=== PATIENT | female | born 1945 | race Caucasian/White ===

== ENCOUNTER 2017-10-17 16:08 | Emergency (ER) | payer BC ==
[~2017-10-17] VITALS: Ht 162.6 cm; Wt 60.4 kg
[~2017-10-17 16:08] MED LIST: ASPI81TA28 PO; CALC600T48 PO; CARB200T2 PO; CRAN1TAB4 PO; CRS/10 PO; CYAN10005 PO; LEVO50TA PO; METO25TA56 PO; MULTTAB58 PO; OMEG10002 PO; OXYC-57 PO; TRAM-10 PO
[2017-10-17 16:14] VITALS: TEMP 37; Ht 162.6 cm; Wt 60.4 kg
[2017-10-17] MEDS ORDERED: ACETAMINOPHEN 325 MG TAB PO STA (16:27)
[2017-10-17] MEDS ORDERED: CYCLOBENZAPRINE HCL 5 MG TAB PO STA (16:27)
--- NOTE | 2017-10-17 16:27 | EMERGENCY ROOM VISIT NOTE ---
History Report prepared by Anastasiia: Vlad Irvin Under the Supervision of: Dr. Lee Huddleston M.D. First contact with patient: 16:17 Chief Complaint: HEADACHE Stated Complaint: PAIN IN TOP OF HEAD AND BACK OF NECK History of Present Illness The patient is a 72 year old white female with a past medical history of left temporal headaches, HLD, hypothyroidism, mood disorder, trigeminal neuralgia, arthritis who presents to the ED with a cc of a worsening headache beginning a month ago. Positive generalized weakness, fatigue, lightheadedness. Negative urinary symptoms, recent falls, hits to the head. She states that 5 days ago, the pain on the top of her head has started to become more frequent, and gets worse at night. She adds that the pain sometimes goes down the left side of the back of her head. The patient notes that she has arthritis and was told by her doctor that she has some "chips" in her neck. She states that she was recently diagnosed with trigeminal neuralgia, and is taking Epitol for that. She notes no recent medication changes. Source of History: patient Onset: A month ago Position: head Quality: other (pain top of head and down left side of back of head) Timing: worsening Modifying Factors (Worsening): other (night time) Associated Symptoms: + fatigue, + weakness, No urinary symptoms Note: Positive intermittent lightheadedness. Negative recent falls. Review of Systems See HPI for pertinent positives and negatives. A total of ten systems were reviewed and were otherwise negative. Past Medical & Surgical Medical Problems: (1) Degenerative disc disease, cervical (2) Hyperlipidemia (3) Hypothyroidism (4) Intractable headache (5) Kidney stones (6) Trigeminal neuralgia Surgical Problems: (1) H/o vaginal repair (2) History of hysterectomy (3) Status post tubal ligation Family History Diabetes mellitus MOTHER SISTER FH: CHF (congestive heart failure) FATHER Social History Smoking Status: Never Smoker Alcohol Use: none Drug Use: none Marital Status: Housing Status: lives with significant other Occupation Status: retired Current/Historical Medications Scheduled Aspirin (Aspirin Ec), 81 MG PO QAM Calcium Carbonate (Calcium Carbonate), 600 MG PO QAM Carbamazepine (Epitol), 300 MG PO BID Cranberry (Vaccinium Macrocarp (Cranberry), 400 MG PO QAM Cyanocobalamin (Vitamin B-12), 1,000 MCG PO QAM Levothyroxine Sodium (Synthroid), 50 MCG PO QAM Metoprolol Tartrate (Lopressor) (Lopressor), 25 MG PO BID Multiple Vitamin (Multivitamin), 1 TAB PO QAM [place]-3 Fatty Acids (Fish Oil), 1,000 MG PO QAM Rosuvastatin Calcium (Crestor), 10 MG PO DAILYBL Scheduled PRN Oxycodone/Acetaminophen 5MG/325MG (Percocet 5MG/325MG), 1 TABLET PO Q4H PRN for Pain Tramadol (Ultram), 50-100 MG PO Q6H PRN for Pain Allergies Coded Allergies: Pseudoephedrine (Verified Allergy, Intermediate, heart beats, funny feeling, 10/17/17) Physical Exam Vital Signs Date Time Temp Pulse Resp B/P (MAP) Pulse Ox O2 Delivery O2 Flow Rate FiO2 10/17/17 17:30 72 18 147/77 98 Room Air 10/17/17 16:14 37.0 84 20 161/84 97 Room Air Physical Exam GENERAL: Awake, alert, well-appearing, NAD HENT: Normocephalic, atraumatic. EYES: Normal conjunctiva. Sclera non-icteric. NECK: Supple. No nuchal rigidity. FROM. RESPIRATORY: CTAB, no rhonchi, wheezing, crackles CARDIAC: RRR, no MRG ABDOMEN: Soft, NTND, BS+ MSK: No chest wall TTP, no LE edema NEURO: CN 2-12 intact, 5/5 upper and lower extremity strength, no dysmetria, no drift, good finger to nose, no sensory deficits. SKIN: No rash or jaundice noted. Medical Decision & Procedures ER Provider Diagnostic Interpretation: CT: Radiology results as stated below per my review and radiologist interpretation HEAD CT NONCONTRAST CT DOSE: 537.48 mGy.cm HISTORY: Headache. Evaluate for hemorrhage or pathology TECHNIQUE: Multiaxial CT images of the head were performed without the use of intravenous contrast. Automated exposure control was utilized for this study. A dose lowering technique was utilized adhering to the principles of ALARA. Comparison: None. Findings: The paranasal sinuses and mastoid air cells are clear. The calvarium and skull base are intact. There is no mass, hematoma, midline shift, acute infarct. White matter hypodensity is nonspecific but suggestive of microvascular ischemic change. The ventricles and sulci demonstrate mild age-related involutional changes. Impression: No acute intracranial abnormality. Electronically signed by: Yogesh Johnson M.D. 10/17/2017 5:23 PM Dictated Date/Time: 10/17/2017 5:18 PM Laboratory Results 10/17/17 16:40 Red Blood Count 3.93, Mean Corpuscular Volume 92.1, Mean Corpuscular Hemoglobin 29.8, Mean Corpuscular Hemoglobin Concent 32.3, Mean Platelet Volume 10.1, Neutrophils (%) (Auto) 53.9, Lymphocytes (%) (Auto) 28.3, Monocytes (%) (Auto) 15.7, Eosinophils (%) (Auto) 1.5, Basophils (%) (Auto) 0.2, Neutrophils # (Auto ) 2.95, Lymphocytes # (Auto) 1.55, Monocytes # (Auto) 0.86, Eosinophils # (Auto ) 0.08, Basophils # (Auto) 0.01 10/17/17 16:40 Test 10/17/17 16:40 White Blood Count 5.47 K/uL (4.8-10.8) Red Blood Count 3.93 M/uL (4.2-5.4) Hemoglobin 11.7 g/dL (12.0-16.0) Hematocrit 36.2 % (37-47) Mean Corpuscular Volume 92.1 fL (80-100) Mean Corpuscular Hemoglobin 29.8 pg (25-34) Mean Corpuscular Hemoglobin Concent 32.3 g/dl (32-36) Platelet Count 161 K/uL (130-400) Mean Platelet Volume 10.1 fL (7.4-10.4) Neutrophils (%) (Auto) 53.9 % Lymphocytes (%) (Auto) 28.3 % Monocytes (%) (Auto) 15.7 % Eosinophils (%) (Auto) 1.5 % Basophils (%) (Auto) 0.2 % Neutrophils # (Auto) 2.95 K/uL (1.4-6.5) Lymphocytes # (Auto) 1.55 K/uL (1.2-3.4) Monocytes # (Auto) 0.86 K/uL (0.11-0.59) Eosinophils # (Auto) 0.08 K/uL (0-0.5) Basophils # (Auto) 0.01 K/uL (0-0.2) RDW Standard Deviation 46.1 fL (36.4-46.3) RDW Coefficient of Variation 13.8 % (11.5-14.5) Immature Granulocyte % (Auto) 0.4 % Immature Granulocyte # (Auto) 0.02 K/uL (0.00-0.02) Prothrombin Time 10.2 SECONDS (9.0-12.0) Prothromb Time International Ratio 1.0 (0.9-1.1) Activated Partial Thromboplast Time 23.7 SECONDS (21.0-31.0) Partial Thromboplastin Ratio 0.9 Anion Gap 5.0 mmol/L (3-11) Est Creatinine Clear Calc Drug Dose 70.9 ml/min Estimated GFR () 104.4 Estimated GFR (Non- 90.1 BUN/Creatinine Ratio 23.2 (10-20) Calcium Level 8.7 mg/dl (8.5-10.1) Magnesium Level 2.3 mg/dl (1.8-2.4) Laboratory results reviewed by me Medications Administered Medications (Trade) Dose Ordered Sig/Jeff Route Start Time Stop Time Status Last Admin Dose Admin Acetaminophen (Tylenol Tab) 650 mg NOW STAT PO 10/17/17 16:27 10/17/17 16:29 DC 10/17/17 16:46 650 MG Cyclobenzaprine HCl (Flexeril Tab) 5 mg ONE STAT PO 10/17/17 16:27 10/17/17 16:29 DC 10/17/17 16:46 5 MG ED Course 1620: The patient was evaluated in room C1B. A complete history and physical exam was performed. 1733: I reevaluated the patient and she is resting. Discussed results and discharge instructions: she verbalized understanding and agreement. The patient is ready for discharge. Medical Decision The patient is a 72 year old white female with a past medical history of left temporal headaches, HLD, hypothyroidism, mood disorder, trigeminal neuralgia, arthritis who presents to the ED with a cc of a worsening headache beginning a month ago. Positive generalized weakness, fatigue, lightheadedness. Negative urinary symptoms, recent falls, hits to the head. Differential diagnosis: Etiologies such as migraine headache, meningitis, sinusitis, CO exposure, ICH, SAH, infection, tumor, headache, sinus thrombosis, arterial dissection, as well as others were entertained. Patient was seen and evaluated at the bedside. Patient was complaining some type of head pain. Patient does have a history of trigeminal neuralgia as well as some degenerative disc disease in her cervical spine. The patient has a nonfocal neurologic exam. No signs of meningismus. Patient is otherwise very well-appearing. The patient is preoccupied and concerned about possible malignancy, cancer, or mass in the brain. Patient is not taking blood thinning medications. Patient denies any numbness, tingling, or focal weakness. Patient did have blood work completed along with CT of the brain. Patient's blood work unremarkable. CT of the brain negative. Do not believe the patient requires any other advanced imaging given that she has a normal neurologic exam. This may be radicular type pain related to her cervical degenerative disease. May also be related to her history of neuralgia. Patient was told of all findings. Patient was feeling improved. Patient was given strict follow-up , discharge, and return precautions. All questions were answered. Patient was deemed suitable for outpatient follow-up at this time. Patient agreed with the plan of care and was safely discharged home. Medication Reconcilliation Current Medication List: was personally reviewed by me Blood Pressure Screening Patient's blood pressure: Elevated blood pressure Blood pressure disposition: Referred to PCP Impression Primary Impression: Headache Scribe Attestation The scribe's documentation has been prepared under my direction and personally reviewed by me in its entirety. I confirm that the note above accurately reflects all work, treatment, procedures, and medical decision making performed by me. Departure Information Dispostion Home / Self-Care Referrals Taqueria Abraham PA-C (PCP) Patient Instructions Headache Pain, My [facility] Additional Instructions Please return to the emergency department if you have worsening or recurrent symptoms not amenable to at-home treatment. Please call for a follow-up appointment with her primary care physician. Please take your medications as prescribed. If you have other concerns and/or complaints please feel free to also call your primary care physician's office or return the ED for further evaluation, management, and treatment. You received narcotic or benzodiazepene medication while in the emergency room today. This is an addictive medication that may cause drowziness as well as constipation. Do not drive, operate heavy machinery, or drink alcohol under the influence of this medication. You may take tylenol 650 mg every 6 hours as needed for pain. Take your medications as prescribed. You have been examined and treated today on an emergency basis only. This is not a substitute for, or an effort to provide, complete comprehensive medical care. It is impossible to recognize and treat all injuries or illnesses in a single emergency department visit. It is therefore important that you follow up closely with [facility], your PCP, and/or your specialist(s). Call as soon as possible for an appointment. Thank you for your time and consideration. I look forward to speaking with you again soon. Please don't hesitate to call us if you have any questions. Problem Qualifiers Primary Impression: Headache Headache type: unspecified Headache chronicity pattern: acute headache Intractability: not intractable Qualified Codes: R51 - Headache
[2017-10-17 16:53] LABS: BASO % 0.2 %; BASO ABS # 0.01 K/uL (0-0.2); EOS % 1.5 %; EOS ABS # 0.08 K/uL (0-0.5); HEMATOCRIT 36.2 % (37-47); HEMOGLOBIN 11.7 g/dL (12.0-16.0); IG# 0.02 K/uL (0.00-0.02); LYMPH % 28.3 %; LYMPH ABS # 1.55 K/uL (1.2-3.4); MEAN CELL VOLUME 92.1 fL (80-100); MEAN CORPUSCULAR HEMOGLOBIN 29.8 pg (25-34); MEAN CORPUSCULAR HGB CONC 32.3 g/dl (32-36); MEAN PLATELET VOLUME 10.1 fL (7.4-10.4); MONO % 15.7 %; MONO ABS # 0.86 K/uL (0.11-0.59); NEUT % 53.9 %; NEUT ABS # 2.95 K/uL (1.4-6.5); PLATELET COUNT 161 K/uL (130-400); RED CELL DISTRIBUTION WIDTH CV 13.8 % (11.5-14.5); RED CELL DISTRIBUTION WIDTH SD 46.1 fL (36.4-46.3); WHITE BLOOD COUNT 5.47 K/uL (4.8-10.8)
[2017-10-17 17:03] LABS: PTT PATIENT 23.7 SECONDS (21.0-31.0)
[2017-10-17 17:11] LABS: CALCIUM 8.7 mg/dl (8.5-10.1); CREATININE 0.62 mg/dl (0.60-1.20); POTASSIUM 3.8 mmol/L (3.5-5.1)
--- NOTE | 2017-10-17 17:25 | DIAGNOSTIC IMAGING REPORT ---
HEAD CT NONCONTRAST CT DOSE: 537.48 mGy.cm HISTORY: Headache. Evaluate for hemorrhage or pathology TECHNIQUE: Multiaxial CT images of the head were performed without the use of intravenous contrast. Automated exposure control was utilized for this study. A dose lowering technique was utilized adhering to the principles of ALARA. Comparison: None. Findings: The paranasal sinuses and mastoid air cells are clear. The calvarium and skull base are intact. There is no mass, hematoma, midline shift, acute infarct. White matter hypodensity is nonspecific but suggestive of microvascular ischemic change. The ventricles and sulci demonstrate mild age-related involutional changes. Impression: No acute intracranial abnormality. Electronically signed by: Yogesh Johnson M.D. 10/17/2017 5:23 PM Dictated Date/Time: 10/17/2017 5:18 PM
[2017-10-17 17:30] VITALS: BP 147/77; PULSE 72; O2SAT 98
== END 2017-10-17 18:00 | disposition home or self-care (01) ==
LOC: C.EDB 16:09 → C.EDC 18:00
DX: R51 Headache (principal); G50.0 Trigeminal neuralgia; E78.5 Hyperlipidemia, unspecified; E03.9 Hypothyroidism, unspecified; Z79.82 Long term (current) use of aspirin; Z88.8 Allergy status to other drugs, medicaments and biological substances; Z83.3 Family history of diabetes mellitus; Z82.49 Family history of ischemic heart disease and other diseases of the circulatory system

== ENCOUNTER 2023-03-05 19:18 | Inpatient (IN) ==
[2023-03-05] MEDS ORDERED: SODIUM CHLORIDE 0.9% 1000ML 1,000 ML IV ONE (20:15)
[2023-03-05] MEDS ORDERED: ONDANSETRON INJ 2 MG/ML 2 ML VIAL IV STA (20:15)
[2023-03-05 20:19] LABS: Hematocrit (blood only) 41.8 % (37.0-47.0); Hemoglobin 13.8 g/dl (12.0-16.0); Mean Corpuscular Hemoglobin 32.8 pg (25.0-34.0); Mean Corpuscular Volume 99.3 fL (80.0-100.0); Mean Platelet Volume 11.4 fL (9.4-12.4); Platelet Count 128 K/uL (130-400); RDW Coefficient of Variation 12.7 % (11.5-14.5); RDW Standard Deviation 46.3 fL (36.4-46.3); Red Blood Count 4.21 M/uL (4.20-5.40); White Blood Count 14.07 K/ul (4.8-10.8)
[2023-03-05] MEDS ORDERED: MoRPHine SULFATE 2 MG/ML CARP IV STA (20:27)
[2023-03-05] MEDS ORDERED: ACETAMINOPHEN 1,000 MG/100 ML VIAL IV STA (20:27)
[2023-03-05 20:28] LABS: Albumin Globulin Ratio 1.6 (0.9-2); Albumin Level 4.5 gm/dl (3.4-5.0); Bilirubin,Total 0.4 mg/dl (0.2-1.0); Creatinine Clr Calc Pharmacy 49.4 ml/min; Globulin 2.9 gm/dl (2.5-4.0); Potassium 3.4 mmol/L (3.5-5.1); Total Protein 7.4 gm/dl (6.0-8.3)
--- NOTE | 2023-03-05 20:32 | Emergency Department Note ---
Impression & Plan Rectal bleeding, Colitis, Leukocytosis, Elevated troponin ED Provider Note NAME: VAMSHI JONES AGE: 78 SEX: F : 1945 ARRIVES VIA: Walk-In INFORMANT: [Patient][family] ED PROVIDER(S): [Parmjit Ayala MD] CHIEF COMPLAINT: Abdominal pain, rectal bleeding HISTORY OF PRESENT ILLNESS: The patient is a 78-year-old female who states that yesterday, she began having diarrhea. Initially, the diarrhea was just loose and watery. She had some crampy abdominal pain. She states that about 22 hours ago, the diarrhea became eric blood. She has gone multiple times throughout the day today and every time, it has been blood. She still has pain in the left lower quadrant. There has been no fever, she has noticed some chills though. She has not had vomiting but has felt nauseated. No urinary complaints. Patient is not on blood thinning agents. She did have an upper GI bleed before, she required a blood transfusion about 4 years ago for this bleed. She was told that it was from an ulcer. She is currently on omeprazole. PMHx/PSHx: See Below SOCIAL HISTORY: See Below. PHYSICAL EXAM: GENERAL: Patient is in no acute distress. HEENT: No acute trauma, normocephalic atraumatic, mucous membranes moist, no nasal congestion. NECK: No stridor, no adenopathy, no meningismus, trachea is midline. LUNGS: Clear to auscultation bilaterally, no wheeze, no rhonchi, breath sounds equal. HEART: Without murmurs gallops or rubs, regular rate and rhythm. ABDOMEN: Soft, moderately tender in the left lower quadrant, no abdominal distention. EXTREMITIES: No cyanosis or edema, full range of motion of all the joints without pain or difficulty, no signs for acute trauma. NEUROLOGIC: Oriented x 3, no acute motor or sensory deficits, no focal weakness. SKIN: No rash, no jaundice, no diaphoresis. Rectal: This exam was performed with a female nurse wild life photographer. There was no external source for bleeding. Digital exam reveals bright red blood per rectum. DIFFERENTIAL DIAGNOSIS: Diverticular bleeding, diverticulitis, colitis, hemorrhoid, anemia, dehydration, electrolyte imbalance, coagulopathy, among others. EMERGENCY DEPARTMENT COURSE/PROCEDURES: Prior/Outside records reviewed: None. ECG per my interpretation: Indication was GI bleeding. The ECG shows a normal sinus rhythm with a rate of 87. There is a left bundle branch block. LVH is present. There is a potential old anterior infarct. There is no concerning ST elevation. No PVCs. The QTc is 481. Compared to an ECG from 05 August 2021, I see no significant change. Continuous Cardiac Monitoring per my interpretation: An order was placed for continuous cardiac monitoring. The monitor shows a rate of 93 with normal sinus rhythm. MEDICAL DECISION MAKING: There is a mild leukocytosis, this could be consistent with infection or just the stress of her current situation. There was a normal hemoglobin. The platelet count was slightly low. No coagulopathy. Potassium is slightly low but not in need of emergent correction. No renal failure. No concerning liver enzyme elevation. ECG showed a normal sinus rhythm with a left bundle branch block and LVH. No obvious acute ischemia. Cardiac troponin was slightly elevated, this elevation could be secondary to cardiac injury or more likely, mismatch from her current presentation. COVID test returned negative. Abdominal and pelvis CT shows colitis, no diverticulitis, no acute surgical process by CT imaging. On exam, the patient was nontoxic. She was tender in the left lower quadrant. She did have bright red blood per rectum on my exam. Patient received IV Tylenol for pain, he was given IV morphine and IV Zofran, she received IV saline 1 L. Given the persistent rectal bleeding, given her findings on imaging and laboratory testing, I do think a hospital stay is warranted. I spoke with the patient and case management, the on-call hospitalist was consulted. Of note, stool cultures and stool C. difficile testing is currently pending as the patient has yet to provide a sample. DISPOSITION: Patient's presentation and findings warrant a hospital stay. Past Med/Surg History Medical History COVID-19 Degenerative disc disease, cervical Hyperlipidemia Hypothyroidism Kidney stones Mood disorder Trigeminal neuralgia Trigeminal neuralgia Surgical History History of cholecystectomy History of hysterectomy Status post tubal ligation Family History Other Family history of blood clots Social History Smoking Status: Never smoker Preferred Language: [place] marital status: Current Living Situation: Spouse Feels Safe at Home: Yes Allergies Allergies Allergy/AdvReac Type Severity Reaction Status Date / Time pseudoephedrine Allergy Intermediate heart Verified 03/05/23 20:08 beats, funny feeling Home Meds Home Medications Medication Instructions Recorded Confirmed calcium carbonate 600 mg calcium 600 mg PO QAM PRN Heartburn ##0 06/07/16 03/05/23 (1,500 mg) tablet cranberry 400 mg capsule 400 mg PO QAM ##0 06/07/16 03/05/23 multivitamin 1 tab PO QAM #0 tabs 06/07/16 03/05/23 aspirin 81 mg tablet,delayed 81 mg PO QAM ##0 07/29/16 03/05/23 release metoprolol tartrate 25 mg tablet 0 mg PO BID #0 tabs 07/29/16 03/05/23 aspirin-caffeine 500 mg-32.5 mg 1 tab PO DIRECTED PRN Pain 02/18/19 03/05/23 tablet (Dyan Back and Body) ferrous sulfate 325 mg (65 mg 325 mg PO QAM 02/18/19 03/05/23 iron) tablet (iron) lisinopril 5 mg tablet 5 mg PO QAM 04/28/19 03/05/23 rosuvastatin 20 mg tablet 20 mg PO QDL 04/28/19 03/05/23 levothyroxine 75 mcg tablet 75 mcg PO QAM 05/22/21 03/05/23 (Euthyrox) cholecalciferol (vitamin D3) 25 25 mcg PO QAM 07/21/21 03/05/23 mcg (1,000 unit) tablet (Vitamin D3) cyanocobalamin (vitamin B-12) 100 100 mcg PO QAM 07/21/21 03/05/23 mcg tablet (Vitamin B-12) escitalopram oxalate 10 mg tablet 10 mg PO QAM 07/25/21 03/05/23 carbamazepine 200 mg tablet 200 mg PO TID 07/27/21 03/05/23 omeprazole 20 mg capsule,delayed 20 mg PO QAM 08/05/21 03/05/23 release lorazepam 0.5 mg tablet 0.5 mg PO HS PRN Anxiety 03/05/23 03/05/23 Previous Rx's Medication Instructions Recorded naproxen 500 mg tablet 500 mg PO BID PRN pain #14 tabs 07/27/21 Results & Data (ED) Vital Signs Vital Signs - 24 hr 03/05/23 19:25 03/05/23 20:22 03/05/23 20:22 Temperature 36.9 C Temperature Source Temporal Artery Scan Pulse Rate 93 H 85 85 Pulse Rhythm Regular Pulse Strength Normal Respiratory Rate 19 17 Respiratory Effort / Characteristics Non-Labored Spontaneous Respiratory Depth Normal Respiratory Pattern Regular Blood Pressure 101/59 L Blood Pressure Mean 73 Blood Pressure Position Sitting Pulse Oximetry 94 Oxygen Delivery Method Room Air Sepsis Recent Fever Within 48 Hours No Sepsis New/Unexplained Change in Mental Status N/A Sepsis Action Taken by Nursing No Action Required 03/05/23 20:26 03/05/23 20:26 03/05/23 20:30 Temperature Temperature Source Pulse Rate 81 Pulse Rhythm Pulse Strength Respiratory Rate 15 Respiratory Effort / Characteristics Respiratory Depth Respiratory Pattern Blood Pressure 139/59 L 104/55 L Blood Pressure Mean 85 71 Blood Pressure Position Pulse Oximetry Oxygen Delivery Method Sepsis Recent Fever Within 48 Hours Sepsis New/Unexplained Change in Mental Status Sepsis Action Taken by Nursing 03/05/23 20:30 03/05/23 20:40 03/05/23 20:50 Temperature Temperature Source Pulse Rate 81 77 74 Pulse Rhythm Pulse Strength Respiratory Rate 19 17 16 Respiratory Effort / Characteristics Respiratory Depth Respiratory Pattern Blood Pressure Blood Pressure Mean Blood Pressure Position Pulse Oximetry Oxygen Delivery Method Sepsis Recent Fever Within 48 Hours Sepsis New/Unexplained Change in Mental Status Sepsis Action Taken by Nursing 03/05/23 21:00 03/05/23 21:10 03/05/23 21:25 Temperature Temperature Source Pulse Rate 68 66 77 Pulse Rhythm Pulse Strength Respiratory Rate 15 15 17 Respiratory Effort / Characteristics Respiratory Depth Respiratory Pattern Blood Pressure Blood Pressure Mean Blood Pressure Position Pulse Oximetry Oxygen Delivery Method Sepsis Recent Fever Within 48 Hours Sepsis New/Unexplained Change in Mental Status Sepsis Action Taken by Nursing 03/05/23 21:30 03/05/23 21:30 03/05/23 21:40 Temperature Temperature Source Pulse Rate 73 72 Pulse Rhythm Pulse Strength Respiratory Rate 22 18 Respiratory Effort / Characteristics Respiratory Depth Respiratory Pattern Blood Pressure 131/47 L Blood Pressure Mean 75 Blood Pressure Position Pulse Oximetry Oxygen Delivery Method Sepsis Recent Fever Within 48 Hours Sepsis New/Unexplained Change in Mental Status Sepsis Action Taken by Nursing 03/05/23 21:50 03/05/23 22:00 03/05/23 22:00 Temperature Temperature Source Pulse Rate 71 69 Pulse Rhythm Pulse Strength Respiratory Rate 14 18 Respiratory Effort / Characteristics Respiratory Depth Respiratory Pattern Blood Pressure 110/49 L Blood Pressure Mean 69 Blood Pressure Position Pulse Oximetry Oxygen Delivery Method Sepsis Recent Fever Within 48 Hours Sepsis New/Unexplained Change in Mental Status Sepsis Action Taken by Nursing 03/05/23 22:10 03/05/23 22:20 Temperature Temperature Source Pulse Rate 69 70 Pulse Rhythm Pulse Strength Respiratory Rate 16 19 Respiratory Effort / Characteristics Respiratory Depth Respiratory Pattern Blood Pressure Blood Pressure Mean Blood Pressure Position Pulse Oximetry Oxygen Delivery Method Sepsis Recent Fever Within 48 Hours Sepsis New/Unexplained Change in Mental Status Sepsis Action Taken by Correction Medications Current Medication List: was personally reviewed by me Laboratory Data Attestation: I reviewed the patient's lab results. 03/05/23 19:47 03/05/23 19:47 Lab Results 03/05/23 03/05/23 03/05/23 Range/Units 19:29 19:47 19:47 WBC 14.07 H (4.8-10.8) K/ul RBC 4.21 (4.20-5.40) M/uL Hgb 13.8 (12.0-16.0) g/dl Hct 41.8 (37.0-47.0) % MCV 99.3 (80.0-100.0) fL MCH 32.8 (25.0-34.0) pg MCHC 33.0 (32.0-36.0) g/dL RDW Std Deviation 46.3 (36.4-46.3) fL RDW Coeff of Danyelle 12.7 (11.5-14.5) % Plt Count 128 L (130-400) K/uL MPV 11.4 (9.4-12.4) fL PT 10.7 (9.0-12.0) Seconds INR 1.0 (0.9-1.1) APTT 26.5 (21.0-31.0) Seconds PTT Ratio 0.9 Sodium (136-145) mmol/L Potassium (3.5-5.1) mmol/L Chloride (98-107) mmol/L Carbon Dioxide (21-32) mmol/L Anion Gap (3-11) BUN (6-23) mg/dl Creatinine (0.6-1.2) mg/dl Est Cr Clr Drug Dosing ml/min Est GFR ( Amer) ml/min Est GFR (Non-Af Amer) ml/min BUN/Creatinine Ratio (10-20) Glucose (70-99(Fasting)) mg/dl Calcium (8.6-10.3) mg/dl Magnesium (1.7-2.4) mg/dl Total Bilirubin (0.2-1.0) mg/dl AST (13-39) U/L ALT (7-52) U/L Alkaline Phosphatase (34-104) U/L Troponin I High Sens (0-14) pg/ml Total Protein (6.0-8.3) gm/dl Albumin (3.4-5.0) gm/dl Globulin (2.5-4.0) gm/dl Albumin/Globulin Ratio (0.9-2) SARS-CoV-2, RNA, NAAT (NEGATIVE) Blood Type O Positive Antibody Screen NEGATIVE 03/05/23 03/05/23 Range/Units 19:47 20:26 WBC (4.8-10.8) K/ul RBC (4.20-5.40) M/uL Hgb (12.0-16.0) g/dl Hct (37.0-47.0) % MCV (80.0-100.0) fL MCH (25.0-34.0) pg MCHC (32.0-36.0) g/dL RDW Std Deviation (36.4-46.3) fL RDW Coeff of Danyelle (11.5-14.5) % Plt Count (130-400) K/uL MPV (9.4-12.4) fL PT (9.0-12.0) Seconds INR (0.9-1.1) APTT (21.0-31.0) Seconds PTT Ratio Sodium 138 (136-145) mmol/L Potassium 3.4 L (3.5-5.1) mmol/L Chloride 101 (98-107) mmol/L Carbon Dioxide 29 (21-32) mmol/L Anion Gap 8 (3-11) BUN 17 (6-23) mg/dl Creatinine 0.75 (0.6-1.2) mg/dl Est Cr Clr Drug Dosing 49.4 ml/min Est GFR ( Amer) 88.5 ml/min Est GFR (Non-Af Amer) 76.3 ml/min BUN/Creatinine Ratio 22.7 H (10-20) Glucose 135 H (70-99(Fasting)) mg/dl Calcium 9.4 (8.6-10.3) mg/dl Magnesium 2.0 (1.7-2.4) mg/dl Total Bilirubin 0.4 (0.2-1.0) mg/dl AST 17 (13-39) U/L ALT 10 (7-52) U/L Alkaline Phosphatase 111 H (34-104) U/L Troponin I High Sens 19.4 H (0-14) pg/ml Total Protein 7.4 (6.0-8.3) gm/dl Albumin 4.5 (3.4-5.0) gm/dl Globulin 2.9 (2.5-4.0) gm/dl Albumin/Globulin Ratio 1.6 (0.9-2) SARS-CoV-2, RNA, NAAT NEGATIVE (NEGATIVE) Blood Type Antibody Screen Administered Medications Discontinued Medications Sodium Chloride (Nss 1000ml) 1,000 mls @ 999 mls/hr IV .Q1H1M ONE Stop: 03/05/23 21:15 Last Infusion: 03/05/23 21:37 Dose: 0 mls/hr Documented By: Admin: 03/05/23 20:31 Dose: 999 mls/hr Documented By: VERONIKA Acetaminophen (Ofirmev) 1,000 mg in 100 mls @ 400 mls/hr IV NOW STA Stop: 03/05/23 20:41 Last Infusion: 03/05/23 20:51 Dose: 0 mls/hr Documented By: Admin: 03/05/23 20:34 Dose: 400 mls/hr Documented By: VERONIKA Ioversol (Optiray 320 100ml) 94 ml IV ONCE ONE Stop: 03/05/23 21:29 Last Admin: 03/05/23 21:19 Dose: 94 ml Documented By: RYAN Morphine Sulfate (Morphine Sulfate 2 Mg/Ml Carp) 2 mg IV NOW STA Stop: 03/05/23 20:28 Last Admin: 03/05/23 20:34 Dose: 2 mg Documented By: VERONIKA Ondansetron HCl (Ondansetron Inj 2 Mg/Ml 2 Ml Vial) 4 mg IV NOW STA Stop: 03/05/23 20:16 Last Admin: 03/05/23 20:34 Dose: 4 mg Documented By: BCStefan Imaging Data Radiologist's Impression: Abdomen/Pelvis CT 03/05/23 20:15 Exam(s): CT ABDOMEN + PELVIS With Contrast IV Amt: 94 ml [id number] EXAM: CT Abdomen and Pelvis With Intravenous Contrast CLINICAL HISTORY: Reason for exam: rectal bleeding. TECHNIQUE: Axial computed tomography images of the abdomen and pelvis with intravenous contrast. CTDI is 19.4 mGy and DLP is 841.29 mGy-cm. Automated exposure control was utilized for the study. A dose lowering technique was utilized adhering to the principles of ALARA. CONTRAST: Patient received 94 ml [id number] of IV contrast COMPARISON: 07/21/21 FINDINGS: Lung bases: Unremarkable. No mass. No consolidation. Mediastinum: Large hiatal hernia. ABDOMEN: Liver: Unremarkable. No mass. Gallbladder and bile ducts: Unremarkable. No calcified stones. No ductal dilation. Pancreas: Unremarkable. No mass. No ductal dilation. Spleen: Unremarkable. No splenomegaly. Adrenals: Unremarkable. No mass. Kidneys and ureters: Symmetric renal enhancement. No hydronephrosis. Renal parapelvic cysts, simple in appearance; no further follow-up required. Stomach and bowel: Circumferential wall thickening and pericolic fat stranding of the left hemicolon. No bowel obstruction. PELVIS: Appendix: Normal appendix. Bladder: Unremarkable. Normal urinary bladder. Reproductive: Hysterectomy. ABDOMEN and PELVIS: Intraperitoneal space: Unremarkable. No free air or significant free fluid. Bones/joints: No acute fracture or dislocation. Soft tissues: Unremarkable. Vasculature: Atherosclerosis. No aortic aneurysm. Lymph nodes: Unremarkable. No enlarged lymph nodes. IMPRESSION: 1. Colitis of the left colon, infectious or inflammatory. 2. Large hiatal hernia, similar to prior. Electronically signed by: Felisa Manuel M.D. 03/05/23 22:20 PM Discharge Plan Visit Data Chief Complaint: Abdominal Pain Stated Complaint: ABDOMINAL PAIN, RECTAL BLEED ED Provider: Parmjit Ayala Discharge Problem: Rectal bleeding, Colitis, Leukocytosis, Elevated troponin Patient Disposition: Admitted As Inpatient Condition: Fair Forms Stand Alone Forms: AQS Prescriptions Prescriptions: No Action multivitamin Tablet 1 tab PO QAM Qty: 0 calcium carbonate 600 mg calcium (1,500 mg) Tablet 600 mg PO QAM PRN (Reason: Heartburn) Qty: 0 cranberry 400 mg Capsule 400 mg PO QAM Qty: 0 metoprolol tartrate 25 mg Tablet 0 mg PO BID Qty: 0 Rx Instructions: Pt unsure if she takes Succinate or Tartrate aspirin 81 mg Tablet,Delayed Release (Dr/Ec) 81 mg PO QAM Qty: 0 ferrous sulfate [iron] 325 mg (65 mg iron) Tablet 325 mg PO QAM Patient Comments: takes in the afternoon. Dyan Back and Body 500-32.5 mg Tablet 1 tab PO DIRECTED PRN (Reason: Pain) lisinopril 5 mg Tablet 5 mg PO QAM rosuvastatin 20 mg Tablet 20 mg PO QDL levothyroxine [Euthyrox] 75 mcg tablet 75 mcg PO QAM Rx Instructions: Levothyroxine 88mcg on EXT med list, however the pt states she takes 75mcg and the pill is not green, it's purple cyanocobalamin (vitamin B-12) [Vitamin B-12] 100 mcg Tablet 100 mcg PO QAM cholecalciferol (vitamin D3) [Vitamin D3] 25 mcg (1,000 unit) Tablet 25 mcg PO QAM carbamazepine 200 mg tablet 200 mg PO TID naproxen 500 mg tablet 500 mg PO BID PRN (Reason: pain) Qty: 14 0RF omeprazole 20 mg capsule,delayed release(DR/EC) 20 mg PO QAM escitalopram oxalate 10 mg tablet 10 mg PO QAM lorazepam 0.5 mg tablet 0.5 mg PO HS PRN (Reason: Anxiety) Referrals Referrals: Stef Palmer MD [Primary Care Provider] -
[2023-03-05 20:36] LABS: BUN Creatinine Ratio 22.7 (10-20); Calcium 9.4 mg/dl (8.6-10.3); Est GFR (African American) 88.5 ml/min; Est GFR (Non-African American) 76.3 ml/min
[2023-03-05 20:41] LABS: Partial Thromboplastin Ratio 0.9; Partial Thromboplastin Time 26.5 Seconds (21.0-31.0); Prothrombin Time 10.7 Seconds (9.0-12.0)
[2023-03-05 20:43] LABS: Troponin I High Sensitivity 19.4 pg/ml (0-14)
[2023-03-05] MEDS ORDERED: OPTIRAY 320 100ml IV ONE (21:28)
--- NOTE | 2023-03-05 22:21 | CT Scan Report ---
Exam(s): CT ABDOMEN + PELVIS With Contrast IV Amt: 94 ml [id number] EXAM: CT Abdomen and Pelvis With Intravenous Contrast CLINICAL HISTORY: Reason for exam: rectal bleeding. TECHNIQUE: Axial computed tomography images of the abdomen and pelvis with intravenous contrast. CTDI is 19.4 mGy and DLP is 841.29 mGy-cm. Automated exposure control was utilized for the study. A dose lowering technique was utilized adhering to the principles of ALARA. CONTRAST: Patient received 94 ml [id number] of IV contrast COMPARISON: 07/21/21 FINDINGS: Lung bases: Unremarkable. No mass. No consolidation. Mediastinum: Large hiatal hernia. ABDOMEN: Liver: Unremarkable. No mass. Gallbladder and bile ducts: Unremarkable. No calcified stones. No ductal dilation. Pancreas: Unremarkable. No mass. No ductal dilation. Spleen: Unremarkable. No splenomegaly. Adrenals: Unremarkable. No mass. Kidneys and ureters: Symmetric renal enhancement. No hydronephrosis. Renal parapelvic cysts, simple in appearance; no further follow-up required. Stomach and bowel: Circumferential wall thickening and pericolic fat stranding of the left hemicolon. No bowel obstruction. PELVIS: Appendix: Normal appendix. Bladder: Unremarkable. Normal urinary bladder. Reproductive: Hysterectomy. ABDOMEN and PELVIS: Intraperitoneal space: Unremarkable. No free air or significant free fluid. Bones/joints: No acute fracture or dislocation. Soft tissues: Unremarkable. Vasculature: Atherosclerosis. No aortic aneurysm. Lymph nodes: Unremarkable. No enlarged lymph nodes. IMPRESSION: 1. Colitis of the left colon, infectious or inflammatory. 2. Large hiatal hernia, similar to prior. Electronically signed by: Felisa Manuel M.D. 03/05/23 22:20 PM
[2023-03-05] MEDS ORDERED: POTASSIUM CHLORIDE PWD 20 MEQ PACK PO STA (22:31)
[2023-03-05] MEDS ORDERED: NSS + 20MEQ KCL 20 MEQ/1,000 ML BAG IV ONE (22:33)
[2023-03-05 23:31] LABS: Hematocrit (blood only) 35.3 % (37.0-47.0); Hemoglobin 11.5 g/dl (12.0-16.0)
--- NOTE | 2023-03-05 23:43 | History & Physical Report ---
Date of Service March 05, 2023 Assessment & Plan (1) Colitis: Plan: Hemorrhagic colitis Rule out infectious causes chronic systolic heart failure secondary to nonischemic cardiomyopathy (EF 44%, TTE 2016), patient on the dry side chronic LBBB hypertension, stable hyperlipidemia, statin Rx Prediabetes, hemoglobin A1c of 5.7 last year hypothyroidism, euthyroid as of recent outpatient TSH history gastric ulcer history diverticulosis trigeminal neuralgia status post surgery on Tegretol anxiety/mood disorder, at baseline hyperglycemia rule out DM Medical telemetry Clear liquid diet stool work-up GI consult stool work-up negative and with progressive LGIB Re: Hemorrhagic colitis Follow H&H, transfuse PRBC if hemoglobin less than 7 and or from symptomatic anemia DVT prophylaxis. SCDs Re: L GIB Full code Text document was generated using Via6 voice recognition software. It may contain grammatical or spelling errors. Kindly contact undersigned for clarification of any documentation item in question. History of Present Illness Chief Complaint: Bloody diarrhea Primary Care Provider: Stef Palmer MD History obtained from patient and records. Medical history significant for chronic systolic heart failure secondary to nonischemic cardiomyopathy (EF 44%, TTE 2016), chronic LBBB, hypertension, hyperlipidemia, hypothyroidism, history gastric ulcer, history diverticulosis, prediabetes, trigeminal neuralgia status post surgery, anxiety/mood disorder. Last confinement over 2015 for headache attributed to trigeminal neuralgia. Patient noted watery diarrhea symptoms yesterday with crampy abdominal pain. Diarrhea later noted to be bloody. No fever, some chills. Some nausea, no emesis. No recent out-of-town travel, new restaurants, antibiotic Rx or known sick contacts. Patient denies headache, chest pain, SOB. Patient consulted ER for evaluation. 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 Allergies Allergy/AdvReac Type Severity Reaction Status Date / Time pseudoephedrine Allergy Intermediate heart Verified 03/05/23 20:08 beats, funny feeling Home Medications Medication Instructions Recorded Confirmed Type calcium carbonate 600 mg calcium 600 mg PO QAM PRN Heartburn ##0 06/07/16 03/05/23 History (1,500 mg) tablet cranberry 400 mg capsule 400 mg PO QAM ##0 06/07/16 03/05/23 History multivitamin 1 tab PO QAM #0 tabs 06/07/16 03/05/23 History aspirin 81 mg tablet,delayed 81 mg PO QAM ##0 07/29/16 03/05/23 History release metoprolol tartrate 25 mg tablet 0 mg PO BID #0 tabs 07/29/16 03/05/23 History aspirin-caffeine 500 mg-32.5 mg 1 tab PO DIRECTED PRN Pain 02/18/19 03/05/23 History tablet (Dyan Back and Body) ferrous sulfate 325 mg (65 mg 325 mg PO QAM 02/18/19 03/05/23 History iron) tablet (iron) lisinopril 5 mg tablet 5 mg PO QAM 04/28/19 03/05/23 History rosuvastatin 20 mg tablet 20 mg PO QDL 04/28/19 03/05/23 History levothyroxine 75 mcg tablet 75 mcg PO QAM 05/22/21 03/05/23 History (Euthyrox) cholecalciferol (vitamin D3) 25 25 mcg PO QAM 07/21/21 03/05/23 History mcg (1,000 unit) tablet (Vitamin D3) cyanocobalamin (vitamin B-12) 100 100 mcg PO QAM 07/21/21 03/05/23 History mcg tablet (Vitamin B-12) escitalopram oxalate 10 mg tablet 10 mg PO QAM 07/25/21 03/05/23 History carbamazepine 200 mg tablet 200 mg PO TID 07/27/21 03/05/23 History naproxen 500 mg tablet 500 mg PO BID PRN pain #14 tabs 07/27/21 03/05/23 Rx omeprazole 20 mg capsule,delayed 20 mg PO QAM 08/05/21 03/05/23 History release lorazepam 0.5 mg tablet 0.5 mg PO HS PRN Anxiety 03/05/23 03/05/23 History Past Med/Surg History Medical History COVID-19 Degenerative disc disease, cervical Hyperlipidemia Hypothyroidism Kidney stones Mood disorder Trigeminal neuralgia Trigeminal neuralgia Surgical History History of cholecystectomy History of hysterectomy Status post tubal ligation Family History Other Family history of blood clots Social History Smoking Status: Never smoker Hx Alcohol Use: No Hx Substance Use: No Preferred Language: American Communication Ability: Effective Bookkeeping Teacher Required: No Beliefs That Will Affect Care: None marital status: Current Living Situation: Spouse Other Information That Helps Us Care for You: No Feels Safe at Home: Yes Safety Concerns: Feels Safe At This Time Assistive Devices: Glasses Review of Systems Review of Systems: As per HPI, all other systems reviewed and negative Physical Exam Physical Exam: GENERAL: Comfortable, pleasant, slightly hard of hearing, no respiratory distr ess SKIN: Normal color, warm HEENT: [place] palpebral conjunctivae, no ptosis, dry buccal mucosa NECK : Supple, no tenderness CHEST : CTA, no tenderness HEART : RRR, no obvious murmurs ABDOMEN: Some distention, left-sided abdominal tenderness EXTREMITIES : Minimal LE swelling, no LE tenderness, no other conspicuous deformities noted NEUROLOGIC : Coherent, no facial asymmetry, slightly hard of hearing, no other gross focality Results & Data Results & Data Vital Signs (Past 12 Hours) Vital Signs Temp Pulse Resp BP Pulse Ox O2 Del Method 03/05/23 23:00 69 21 126/62 03/05/23 22:30 68 18 114/53 L 03/05/23 22:20 70 19 03/05/23 22:10 69 16 03/05/23 22:00 69 18 03/05/23 22:00 110/49 L 03/05/23 21:50 71 14 03/05/23 21:40 72 18 03/05/23 21:30 73 22 03/05/23 21:30 131/47 L 03/05/23 21:25 77 17 03/05/23 21:10 66 15 03/05/23 21:00 68 15 03/05/23 20:50 74 16 03/05/23 20:40 77 17 03/05/23 20:30 81 19 03/05/23 20:30 104/55 L 03/05/23 20:26 139/59 L 07/16/23 20:26 81 15 03/05/23 20:22 85 17 03/05/23 20:22 85 03/05/23 19:25 36.9 C 93 H 19 101/59 L 94 Room Air Laboratory Results Laboratory Results WBC 14.07 K/ul (4.8-10.8) H 03/05/23 19:47 RBC 4.21 M/uL (4.20-5.40) 03/05/23 19:47 Hgb 11.5 g/dl (12.0-16.0) L 03/05/23 23:10 Hct 35.3 % (37.0-47.0) L 03/05/23 23:10 MCV 99.3 fL (80.0-100.0) 03/05/23 19:47 MCH 32.8 pg (25.0-34.0) 03/05/23 19:47 MCHC 33.0 g/dL (32.0-36.0) 03/05/23 19:47 RDW Std Deviation 46.3 fL (36.4-46.3) 03/05/23 19:47 RDW Coeff of Danyelle 12.7 % (11.5-14.5) 03/05/23 19:47 Plt Count 128 K/uL (130-400) L 03/05/23 19:47 MPV 11.4 fL (9.4-12.4) 03/05/23 19:47 PT 10.7 Seconds (9.0-12.0) 03/05/23 19:47 INR 1.0 (0.9-1.1) 03/05/23 19:47 APTT 26.5 Seconds (21.0-31.0) 03/05/23 19:47 PTT Ratio 0.9 03/05/23 19:47 Sodium 138 mmol/L (136-145) 03/05/23 19:47 Potassium 3.4 mmol/L (3.5-5.1) L 03/05/23 19:47 Chloride 101 mmol/L (98-107) 03/05/23 19:47 Carbon Dioxide 29 mmol/L (21-32) 03/05/23 19:47 Anion Gap 8 (3-11) 03/05/23 19:47 BUN 17 mg/dl (6-23) 03/05/23 19:47 Creatinine 0.75 mg/dl (0.6-1.2) 03/05/23 19:47 Est Cr Clr Drug Dosing 49.4 ml/min 03/05/23 19:47 Est GFR ( Amer) 88.5 ml/min 03/05/23 19:47 Est GFR (Non-Af Amer) 76.3 ml/min 03/05/23 19:47 BUN/Creatinine Ratio 22.7 (10-20) H 03/05/23 19:47 Glucose 135 mg/dl (70-99(Fasting)) H 03/05/23 19:47 Lactate 0.6 mmol/L (0.4-2.0) 03/05/23 22:51 Calcium 9.4 mg/dl (8.6-10.3) 03/05/23 19:47 Magnesium 2.0 mg/dl (1.7-2.4) 03/05/23 19:47 Total Bilirubin 0.4 mg/dl (0.2-1.0) 03/05/23 19:47 AST 17 U/L (13-39) 03/05/23 19:47 ALT 10 U/L (7-52) 03/05/23 19:47 Alkaline Phosphatase 111 U/L (34-104) H 03/05/23 19:47 Troponin I High Sens 19.0 pg/ml (0-14) H 03/05/23 22:51 Total Protein 7.4 gm/dl (6.0-8.3) 03/05/23 19:47 Albumin 4.5 gm/dl (3.4-5.0) 03/05/23 19:47 Globulin 2.9 gm/dl (2.5-4.0) 03/05/23 19:47 Albumin/Globulin Ratio 1.6 (0.9-2) 03/05/23 19:47 Carbamazepine 9.0 mcg/ml (4-12) 03/05/23 22:51 SARS-CoV-2, RNA, NAAT NEGATIVE (NEGATIVE) 03/05/23 20:26 Blood Type O Positive 03/05/23 19:29 Antibody Screen NEGATIVE 03/05/23 19:29 Impressions Abdomen/Pelvis CT 03/05/23 20:15 Exam(s): CT ABDOMEN + PELVIS With Contrast IV Amt: 94 ml [id number] EXAM: CT Abdomen and Pelvis With Intravenous Contrast CLINICAL HISTORY: Reason for exam: rectal bleeding. TECHNIQUE: Axial computed tomography images of the abdomen and pelvis with intravenous contrast. CTDI is 19.4 mGy and DLP is 841.29 mGy-cm. Automated exposure control was utilized for the study. A dose lowering technique was utilized adhering to the principles of ALARA. CONTRAST: Patient received 94 ml [id number] of IV contrast COMPARISON: 07/21/21 FINDINGS: Lung bases: Unremarkable. No mass. No consolidation. Mediastinum: Large hiatal hernia. ABDOMEN: Liver: Unremarkable. No mass. Gallbladder and bile ducts: Unremarkable. No calcified stones. No ductal dilation. Pancreas: Unremarkable. No mass. No ductal dilation. Spleen: Unremarkable. No splenomegaly. Adrenals: Unremarkable. No mass. Kidneys and ureters: Symmetric renal enhancement. No hydronephrosis. Renal parapelvic cysts, simple in appearance; no further follow-up required. Stomach and bowel: Circumferential wall thickening and pericolic fat stranding of the left hemicolon. No bowel obstruction. PELVIS: Appendix: Normal appendix. Bladder: Unremarkable. Normal urinary bladder. Reproductive: Hysterectomy. ABDOMEN and PELVIS: Intraperitoneal space: Unremarkable. No free air or significant free fluid. Bones/joints: No acute fracture or dislocation. Soft tissues: Unremarkable. Vasculature: Atherosclerosis. No aortic aneurysm. Lymph nodes: Unremarkable. No enlarged lymph nodes. IMPRESSION: 1. Colitis of the left colon, infectious or inflammatory. 2. Large hiatal hernia, similar to prior. Electronically signed by: Felisa Manuel M.D. 03/05/23 22:20 PM Diagnostic Findings EKG as per my interpretation : Rate 85, NSR, LAD, LAFB, LVH inferior infarct, no ischemia
[2023-03-05] MEDS ORDERED: ACETAMINOPHEN 325 MG TAB PO PRN (23:47)
[2023-03-05] MEDS ORDERED: oxyCODONE HCL IR 5 MG TAB (IMMEDIATE RELEASE) PO PRN (23:47)
[2023-03-05] MEDS ORDERED: PROMETHAZINE HCL 6.25 MG in SODIUM CHLORIDE 0.9% 50 ML IV PRN (23:47)
[2023-03-06] MEDS ORDERED: LORazepam 0.5 MG TAB PO PRN (02:17)
[2023-03-06] MEDS: carBAMazepine 200 MG TABLET PO SCH ×4 (02:54→21:03)
[2023-03-06] MEDS: LEVOTHYROXINE SODIUM 75 MCG TABLET PO SCH (06:22)
[2023-03-06] MEDS: PANTOprazole 40 MG TAB PO SCH (07:37)
[2023-03-06] MEDS: MULTIVITAMIN TAB PO SCH (07:37)
[2023-03-06] MEDS: lisinopril 5 MG TAB PO SCH (07:38)
[2023-03-06] MEDS: CYANOCOBALAMIN (B-12) 100 MCG TABLET PO SCH (07:38)
[2023-03-06] MEDS: ESCITALOPRAM OXALATE 10 MG TAB PO SCH (07:38)
[2023-03-06] MEDS ORDERED: METOPROLOL TARTRATE 25 MG TAB PO ONE (08:25)
[2023-03-06 08:37] LABS: Basophils # (auto) 0.04 K/uL (0-0.2); Basophils % (auto) 0.3 %; Eosinophils # (auto) 0.09 K/uL (0-0.50); Eosinophils % (auto) 0.8 %; Hemoglobin 12.7 g/dl (12.0-16.0); Immature Granulocytes # (auto) 0.02 K/uL (0.01-0.20); Immature Granulocytes % (auto) 0.2 %; Lymphocytes # (auto) 1.76 K/uL (1.2-3.4); Lymphocytes % (auto) 15.2 %; Mean Corpuscular Hemoglobin 32.6 pg (25.0-34.0); Mean Corpuscular Hgb Conc 31.8 g/dL (32.0-36.0); Mean Corpuscular Volume 102.6 fL (80.0-100.0); Mean Platelet Volume 11.3 fL (9.4-12.4); Monocytes % (auto) 12.1 %; Neutrophils # (auto) 8.27 K/uL (1.40-6.50); Neutrophils % (auto) 71.4 %; Platelet Count 110 K/uL (130-400); RDW Coefficient of Variation 12.9 % (11.5-14.5); RDW Standard Deviation 48.2 fL (36.4-46.3); White Blood Count 11.58 K/ul (4.8-10.8)
[2023-03-06 08:57] LABS: BUN Creatinine Ratio 18.3 (10-20); Calcium 8.7 mg/dl (8.6-10.3); Creatinine Clr Calc Pharmacy 55.5 ml/min; Est GFR (African American) 101.2 ml/min; Est GFR (Non-African American) 87.3 ml/min; Potassium 3.6 mmol/L (3.5-5.1)
[2023-03-06] MEDS ORDERED: METOPROLOL TARTRATE 25 MG TAB PO SCH (09:00)
[2023-03-06] MEDS: ROSUVASTATIN CALCIUM 20 MG TAB PO SCH (12:04)
--- NOTE | 2023-03-06 13:04 | Electrocardiogram Report ---
Test Reason : Blood Pressure : / mmHG Vent. Rate : 087 BPM Atrial Rate : 087 BPM P-R Int : 130 ms QRS Dur : 128 ms QT Int : 400 ms P-R-T Axes : 034 -10 143 degrees QTc Int : 481 ms Normal sinus rhythm Left ventricular hypertrophy with QRS widening and repolarization abnormality Left bundle branch block Inferior infarct , age undetermined Abnormal ECG When compared with ECG of 05-AUG-2021 11:30, Inferior infarct is now Present Confirmed by Bogdan Zapata ([id number]) on 03/06/2023 1:04:27 PM Referred By: REFERRED SELF Confirmed By:Bogdan Zapata
--- NOTE | 2023-03-06 14:12 | Gastrointestinal Consultation ---
Date of Consultation March 06, 2023 Assessment & Plan (1) Rectal bleeding: (2) Colitis: 78 y/o female who presents with bloody diarrhea and Left-sided abd pain; CT w/ left-sided colitis. On exam, soft abd, mild TTP left abd. Diff dx = infectious, inflammatory, ischemic - Send stool for C diff, GI pathogen panel - Start Cipro/Flagyl IV - Liquid diet as tolerated - Trend H/H, transfuse pRBC PRN - Monitor and document GI output - Will need likely OP colonoscopy in follow-up pending w/u as intpt Thank you for allowing us to participate in the care of this patient. Please call with any acute changes, questions or concerns. Please see addendum below with additional recommendation from my supervising physician. Supervising Physician Co-Signing Physician Notes I performed a history and physical examination of the patient today, including specifically on physical exam - soft abdomen. I have discussed the patient's management with the advanced practitioner. Please refer to the nurse practitioner's note for the documented findings and plan of care. Likely ischemic. IV ABx. Colonoscopy as OP. History of Present Illness Reason for Consultation: Abd pain, colitis, Rectal bleed Requesting Physician: Dr. Dinero Attending Physician: Giorgio Dinero MD History of Present Illness This is a 78 y/o female with PMHx chronic systolic heart failure secondary to nonischemic cardiomyopathy (EF 44%, TTE 2016), HTN, HLD. hyperlipidemia, hypothyroidism, h/o gastric ulcer, prediabetes, anxiety/mood disorder, and others who presented with crampy abd pain and diarrhea. Symptoms started over the weekend; she had several bouts of brown liquidy diarrhea followed by Left- sided crampy abd pain and BRBPR several times. On arrival labs notable for leukocytosis WBC 14->11.58, HGB 13-11->12.7 with elevated MCV, K 3.4, BUN 17, cr 0.75, normal lactate 0.[address]. [address] suggestive of left-sided colitis. Overnight had small bloody output; no significant stool output, Vitals are stable. Abd discomfort is improving. History of intermittent diarrhea but none like this. No sick contacts, new meds, ABX, travel. Denies nausea, vomiting, hematemesis, heartburn, dysphagia, melena, fever, chills, CP, SOB. No NSAID use. 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 - Large hiatal hernia with associated Jose's erosions. - Normal examined duodenum. - No specimens collected. Colonoscopy 2019: - Diverticulosis in the sigmoid colon and in the descending colon. - Hemorrhoids. Allergies Allergy/AdvReac Type Severity Reaction Status Date / Time pseudoephedrine Allergy Intermediate heart Verified 03/05/23 20:08 beats, funny feeling Home Medications Medication Instructions Recorded Confirmed Type calcium carbonate 600 mg calcium 600 mg PO QAM PRN Heartburn ##0 06/07/16 03/05/23 History (1,500 mg) tablet cranberry 400 mg capsule 400 mg PO QAM ##0 06/07/16 03/05/23 History multivitamin 1 tab PO QAM #0 tabs 06/07/16 03/05/23 History aspirin 81 mg tablet,delayed 81 mg PO QAM ##0 07/29/16 03/05/23 History release metoprolol tartrate 25 mg tablet 0 mg PO BID #0 tabs 07/29/16 03/05/23 History aspirin-caffeine 500 mg-32.5 mg 1 tab PO DIRECTED PRN Pain 02/18/19 03/05/23 History tablet (Dyan Back and Body) ferrous sulfate 325 mg (65 mg 325 mg PO QAM 02/18/19 03/05/23 History iron) tablet (iron) lisinopril 5 mg tablet 5 mg PO QAM 04/28/19 03/05/23 History rosuvastatin 20 mg tablet 20 mg PO QDL 04/28/19 03/05/23 History levothyroxine 75 mcg tablet 75 mcg PO QAM 05/22/21 03/05/23 History (Euthyrox) cholecalciferol (vitamin D3) 25 25 mcg PO QAM 07/21/21 03/05/23 History mcg (1,000 unit) tablet (Vitamin D3) cyanocobalamin (vitamin B-12) 100 100 mcg PO QAM 07/21/21 03/05/23 History mcg tablet (Vitamin B-12) escitalopram oxalate 10 mg tablet 10 mg PO QAM 07/25/21 03/05/23 History carbamazepine 200 mg tablet 200 mg PO TID 07/27/21 03/05/23 History naproxen 500 mg tablet 500 mg PO BID PRN pain #14 tabs 07/27/21 03/05/23 Rx omeprazole 20 mg capsule,delayed 20 mg PO QAM 08/05/21 03/05/23 History release lorazepam 0.5 mg tablet 0.5 mg PO HS PRN Anxiety 03/05/23 03/05/23 History Patient History Medical History COVID-19 Degenerative disc disease, cervical Hyperlipidemia Hypothyroidism Kidney stones Mood disorder Trigeminal neuralgia Trigeminal neuralgia Surgical History History of cholecystectomy History of hysterectomy Status post tubal ligation Family History Other Family history of blood clots Social History Smoking Status: Never smoker Hx Alcohol Use: No Hx Substance Use: No Preferred Language: [place] Communication Ability: Effective Dog Licenser Required: No Beliefs That Will Affect Care: None marital status: Current Living Situation: Spouse Other Information That Helps Us Care for You: No Feels Safe at Home: Yes Safety Concerns: Feels Safe At This Time Assistive Devices: Glasses Review of Systems Review of Systems: All systems reviewed & are unremarkable except as noted in HPI & below Physical Exam Constitutional: well developed, well nourished and comfortable; no acute distress Eyes: Sclera anicteric, no conjunctival injection ENMT: moist mucous membranes, no pallor Neck: trachea midline supple Respiratory: normal respiratory effort, lungs clear to auscultation Cardiovascular: RRR, no murmur, no edema Gastrointestinal (Abdomen): Inspection/Auscultation: abdomen normal to inspection and normal bowel sounds; abdomen not distended abd soft, mild left-sided tenderness, no rebound, guarding Skin: no rashes, warm and dry Neurologic: alert and oriented x 3, no obvious focal neuro deficit Psychiatric: normal mood and affect Results & Data Vital Signs (Past 12 Hours) Vital Signs Temp Pulse Pulse Pulse Resp BP Pulse Ox 03/06/23 11:40 37.0 C 77 16 122/64 92 03/06/23 08:07 36.7 C 74 16 174/73 H 91 03/06/23 06:59 60 03/06/23 02:17 36.5 C 80 17 157/76 H 94 O2 Del Method 03/06/23 11:40 Room Air 03/06/23 08:07 Room Air 03/06/23 06:59 03/06/23 02:17 Room Air Laboratory Results 03/06/23 03/06/23 03/05/23 Range/Units 08:02 08:02 23:10 WBC 11.58 H (4.8-10.8) K/ul RBC 3.90 L (4.20-5.40) M/uL Hgb 12.7 11.5 L (12.0-16.0) g/dl Hct 40.0 35.3 L (37.0-47.0) % MCV 102.6 H (80.0-100.0) fL MCH 32.6 (25.0-34.0) pg MCHC 31.8 L (32.0-36.0) g/dL RDW Std Deviation 48.2 H (36.4-46.3) fL RDW Coeff of Danyelle 12.9 (11.5-14.5) % Plt Count 110 L (130-400) K/uL MPV 11.3 (9.4-12.4) fL Immature Gran % (Auto) 0.2 % Neut % (Auto) 71.4 % Lymph % (Auto) 15.2 % Harris % (Auto) 12.1 % Eos % (Auto) 0.8 % Baso % (Auto) 0.3 % Neut # (Auto) 8.27 H (1.40-6.50) K/uL Lymph # (Auto) 1.76 (1.2-3.4) K/uL Harris # (Auto) 1.40 H (0.11-0.59) K/uL Eos # (Auto) 0.09 (0-0.50) K/uL Baso # (Auto) 0.04 (0-0.2) K/uL Immature Gran # (Auto) 0.02 (0.01-0.20) K/uL PT (9.0-12.0) Seconds INR (0.9-1.1) APTT (21.0-31.0) Seconds PTT Ratio Sodium 142 (136-145) mmol/L Potassium 3.6 (3.5-5.1) mmol/L Chloride 108 H (98-107) mmol/L Carbon Dioxide 29 (21-32) mmol/L Anion Gap 5 (3-11) BUN 11 (6-23) mg/dl Creatinine 0.60 (0.6-1.2) mg/dl Est Cr Clr Drug Dosing 55.5 ml/min Est GFR ( Amer) 101.2 ml/min Est GFR (Non-Af Amer) 87.3 ml/min BUN/Creatinine Ratio 18.3 (10-20) Glucose 106 H (70-99(Fasting)) mg/dl Lactate (0.4-2.0) mmol/L Calcium 8.7 (8.6-10.3) mg/dl Magnesium (1.7-2.4) mg/dl Total Bilirubin (0.2-1.0) mg/dl AST (13-39) U/L ALT (7-52) U/L Alkaline Phosphatase (34-104) U/L Troponin I High Sens (0-14) pg/ml Total Protein (6.0-8.3) gm/dl Albumin (3.4-5.0) gm/dl Globulin (2.5-4.0) gm/dl Albumin/Globulin Ratio (0.9-2) Procalcitonin (0-0.5) ng/ml Carbamazepine (4-12) mcg/ml SARS-CoV-2, RNA, NAAT (NEGATIVE) Blood Type Antibody Screen 03/05/23 03/05/23 03/05/23 Range/Units 22:51 22:51 22:51 WBC (4.8-10.8) K/ul RBC (4.20-5.40) M/uL Hgb (12.0-16.0) g/dl Hct (37.0-47.0) % MCV (80.0-100.0) fL MCH (25.0-34.0) pg MCHC (32.0-36.0) g/dL RDW Std Deviation (36.4-46.3) fL RDW Coeff of Danyelle (11.5-14.5) % Plt Count (130-400) K/uL MPV (9.4-12.4) fL Immature Gran % (Auto) % Neut % (Auto) % Lymph % (Auto) % Harris % (Auto) % Eos % (Auto) % Baso % (Auto) % Neut # (Auto) (1.40-6.50) K/uL Lymph # (Auto) (1.2-3.4) K/uL Harris # (Auto) (0.11-0.59) K/uL Eos # (Auto) (0-0.50) K/uL Baso # (Auto) (0-0.2) K/uL Immature Gran # (Auto) (0.01-0.20) K/uL PT (9.0-12.0) Seconds INR (0.9-1.1) APTT (21.0-31.0) Seconds PTT Ratio Sodium (136-145) mmol/L Potassium (3.5-5.1) mmol/L Chloride (98-107) mmol/L Carbon Dioxide (21-32) mmol/L Anion Gap (3-11) BUN (6-23) mg/dl Creatinine (0.6-1.2) mg/dl Est Cr Clr Drug Dosing ml/min Est GFR ( Amer) ml/min Est GFR (Non-Af Amer) ml/min BUN/Creatinine Ratio (10-20) Glucose (70-99(Fasting)) mg/dl Lactate 0.6 (0.4-2.0) mmol/L Calcium (8.6-10.3) mg/dl Magnesium (1.7-2.4) mg/dl Total Bilirubin (0.2-1.0) mg/dl AST (13-39) U/L ALT (7-52) U/L Alkaline Phosphatase (34-104) U/L Troponin I High Sens 19.0 H (0-14) pg/ml Total Protein (6.0-8.3) gm/dl Albumin (3.4-5.0) gm/dl Globulin (2.5-4.0) gm/dl Albumin/Globulin Ratio (0.9-2) Procalcitonin (0-0.5) ng/ml Carbamazepine 9.0 (4-12) mcg/ml SARS-CoV-2, RNA, NAAT (NEGATIVE) Blood Type Antibody Screen 03/05/23 03/05/23 03/05/23 Range/Units 22:50 20:26 19:47 WBC (4.8-10.8) K/ul RBC (4.20-5.40) M/uL Hgb (12.0-16.0) g/dl Hct (37.0-47.0) % MCV (80.0-100.0) fL MCH (25.0-34.0) pg MCHC (32.0-36.0) g/dL RDW Std Deviation (36.4-46.3) fL RDW Coeff of Danyelle (11.5-14.5) % Plt Count (130-400) K/uL MPV (9.4-12.4) fL Immature Gran % (Auto) % Neut % (Auto) % Lymph % (Auto) % Harris % (Auto) % Eos % (Auto) % Baso % (Auto) % Neut # (Auto) (1.40-6.50) K/uL Lymph # (Auto) (1.2-3.4) K/uL Harris # (Auto) (0.11-0.59) K/uL Eos # (Auto) (0-0.50) K/uL Baso # (Auto) (0-0.2) K/uL Immature Gran # (Auto) (0.01-0.20) K/uL PT (9.0-12.0) Seconds INR (0.9-1.1) APTT (21.0-31.0) Seconds PTT Ratio Sodium 138 (136-145) mmol/L Potassium 3.4 L (3.5-5.1) mmol/L Chloride 101 (98-107) mmol/L Carbon Dioxide 29 (21-32) mmol/L Anion Gap 8 (3-11) BUN 17 (6-23) mg/dl Creatinine 0.75 (0.6-1.2) mg/dl Est Cr Clr Drug Dosing 49.4 ml/min Est GFR ( Amer) 88.5 ml/min Est GFR (Non-Af Amer) 76.3 ml/min BUN/Creatinine Ratio 22.7 H (10-20) Glucose 135 H (70-99(Fasting)) mg/dl Lactate (0.4-2.0) mmol/L Calcium 9.4 (8.6-10.3) mg/dl Magnesium 2.0 (1.7-2.4) mg/dl Total Bilirubin 0.4 (0.2-1.0) mg/dl AST 17 (13-39) U/L ALT 10 (7-52) U/L Alkaline Phosphatase 111 H (34-104) U/L Troponin I High Sens 19.4 H (0-14) pg/ml Total Protein 7.4 (6.0-8.3) gm/dl Albumin 4.5 (3.4-5.0) gm/dl Globulin 2.9 (2.5-4.0) gm/dl Albumin/Globulin Ratio 1.6 (0.9-2) Procalcitonin 0.11 (0-0.5) ng/ml Carbamazepine (4-12) mcg/ml SARS-CoV-2, RNA, NAAT NEGATIVE (NEGATIVE) Blood Type Antibody Screen 03/05/23 03/05/23 03/05/23 Range/Units 19:47 19:47 19:29 WBC 14.07 H (4.8-10.8) K/ul RBC 4.21 (4.20-5.40) M/uL Hgb 13.8 (12.0-16.0) g/dl Hct 41.8 (37.0-47.0) % MCV 99.3 (80.0-100.0) fL MCH 32.8 (25.0-34.0) pg MCHC 33.0 (32.0-36.0) g/dL RDW Std Deviation 46.3 (36.4-46.3) fL RDW Coeff of Danyelle 12.7 (11.5-14.5) % Plt Count 128 L (130-400) K/uL MPV 11.4 (9.4-12.4) fL Immature Gran % (Auto) % Neut % (Auto) % Lymph % (Auto) % Harris % (Auto) % Eos % (Auto) % Baso % (Auto) % Neut # (Auto) (1.40-6.50) K/uL Lymph # (Auto) (1.2-3.4) K/uL Harris # (Auto) (0.11-0.59) K/uL Eos # (Auto) (0-0.50) K/uL Baso # (Auto) (0-0.2) K/uL Immature Gran # (Auto) (0.01-0.20) K/uL PT 10.7 (9.0-12.0) Seconds INR 1.0 (0.9-1.1) APTT 26.5 (21.0-31.0) Seconds PTT Ratio 0.9 Sodium (136-145) mmol/L Potassium (3.5-5.1) mmol/L Chloride (98-107) mmol/L Carbon Dioxide (21-32) mmol/L Anion Gap (3-11) BUN (6-23) mg/dl Creatinine (0.6-1.2) mg/dl Est Cr Clr Drug Dosing ml/min Est GFR ( Amer) ml/min Est GFR (Non-Af Amer) ml/min BUN/Creatinine Ratio (10-20) Glucose (70-99(Fasting)) mg/dl Lactate (0.4-2.0) mmol/L Calcium (8.6-10.3) mg/dl Magnesium (1.7-2.4) mg/dl Total Bilirubin (0.2-1.0) mg/dl AST (13-39) U/L ALT (7-52) U/L Alkaline Phosphatase (34-104) U/L Troponin I High Sens (0-14) pg/ml Total Protein (6.0-8.3) gm/dl Albumin (3.4-5.0) gm/dl Globulin (2.5-4.0) gm/dl Albumin/Globulin Ratio (0.9-2) Procalcitonin (0-0.5) ng/ml Carbamazepine (4-12) mcg/ml SARS-CoV-2, RNA, NAAT (NEGATIVE) Blood Type O Positive Antibody Screen NEGATIVE Diagnostic Findings CTAP: FINDINGS: Lung bases: Unremarkable. No mass. No consolidation. Mediastinum: Large hiatal hernia. ABDOMEN: Liver: Unremarkable. No mass. Gallbladder and bile ducts: Unremarkable. No calcified stones. No ductal dilation. Pancreas: Unremarkable. No mass. No ductal dilation. Spleen: Unremarkable. No splenomegaly. Adrenals: Unremarkable. No mass. Kidneys and ureters: Symmetric renal enhancement. No hydronephrosis. Renal parapelvic cysts, simple in appearance; no further follow-up required. Stomach and bowel: Circumferential wall thickening and pericolic fat stranding of the left hemicolon. No bowel obstruction. PELVIS: Appendix: Normal appendix. Bladder: Unremarkable. Normal urinary bladder. Reproductive: Hysterectomy. ABDOMEN and PELVIS: Intraperitoneal space: Unremarkable. No free air or significant free fluid. Bones/joints: No acute fracture or dislocation. Soft tissues: Unremarkable. Vasculature: Atherosclerosis. No aortic aneurysm. Lymph nodes: Unremarkable. No enlarged lymph nodes. IMPRESSION: 1. Colitis of the left colon, infectious or inflammatory. 2. Large hiatal hernia, similar to prior.
[2023-03-06] MEDS ORDERED: NSS + 20MEQ KCL 20 MEQ/1,000 ML BAG IV ONE (14:34)
--- NOTE | 2023-03-06 14:34 | Hospitalist Progress Note ---
Date of Service March 06, 2023 Assessment & Plan (1) Colitis: Plan: Hemorrhagic colitis --CT ABD:Colitis of the left colon, infectious or inflammatory. Large hiatal hernia, similar to prior. H/O hemorrhoids, diverticulosis, Gastric Ulcer Stool studies pending Monitor H&H and transfuse as needed Empirically started on Cipro, Flagyl Gentle IV fluids Appreciate GI input Continue PPI Hold Aspirin, avoid anticoagulation Liquid diet for now Mild troponin elevation Likely demand ischemia secondary to above Denies any chest pain, dyspnea No significant rise in troponin Chronic systolic heart failure H/O Nonischemic cardiomyopathy (EF 44%, TTE 2016) Chronic LBBB Clinically dehydrated Monitor volume status while on IV fluids Hypertension Continue metoprolol, lisinopril Monitor Hyperlipidemia On statin Prediabetes Last HbA1C 5.7 Hypothyroidism Continue levothyroxine Trigeminal Neuralgia S/P surgery Continue Tegretol DVT Px: SCDs Re: L GIB Code Status Full code Admission and Anticipated Discharge Date Admission Date: March 05, 2023 Subjective Patient is seen and examined at bedside States having bloody bowel movement this morning Denies any abdominal pain but had tenderness on exam Also denies any nausea, vomiting, chest pain, dyspnea Hemoglobin stable Review of Systems Review of Systems: All systems reviewed & are unremarkable except as noted in Subjective Physical Exam Physical Exam: Physical Exam: Vitals signs as noted above General Appearance:Elderly, no apparent distress Head: normocephalic, Atraumatic Eyes: normal inspection, EOMI Neck: supple, Trachea midline Respiratory/Chest: Normal breath sounds, CTA, No accessory muscle use Cardiovascular: S1, S2, No murmur Abdomen/GI:Soft, LLQ tender, Bowel sounds present Extremities/Musculoskeletal:normal inspection, no edema Neurologic/Psych:AAOX3, grossly no focal neurological deficits Skin: normal color, warm Results & Data Results & Data Vital Signs (Past 12 Hours) Vital Signs Temp Pulse Pulse Resp BP Pulse Ox O2 Del Method 03/06/23 11:40 37.0 C 77 16 122/64 92 Room Air 03/06/23 08:07 36.7 C 74 16 174/73 H 91 Room Air 03/06/23 06:59 60 Laboratory Results Short CBC 03/05/23 03/05/23 03/06/23 Range/Units 19:47 23:10 08:02 WBC 14.07 H 11.58 H (4.8-10.8) K/ul Hgb 13.8 11.5 L 12.7 (12.0-16.0) g/dl Hct 41.8 35.3 L 40.0 (37.0-47.0) % Plt Count 128 L 110 L (130-400) K/uL BMP 03/05/23 03/06/23 19:47 08:02 Sodium 138 142 Potassium 3.4 L 3.6 Chloride 101 108 H Carbon Dioxide 29 29 BUN 17 11 Creatinine 0.75 0.60 Glucose 135 H 106 H Calcium 9.4 8.7 Liver Function 03/05/23 Range/Units 19:47 Total Bilirubin 0.4 (0.2-1.0) mg/dl AST 17 (13-39) U/L ALT 10 (7-52) U/L Alkaline Phosphatase 111 H (34-104) U/L Albumin 4.5 (3.4-5.0) gm/dl
[2023-03-06] MEDS: CIPROFLOXACIN / D5W 400 MG/200 ML BAG IV SCH (15:24)
[2023-03-06] MEDS: metroNIDAZOLE 500 MG/100 ML BAG IV SCH ×2 (15:26→20:59)
[2023-03-06 17:21] LABS: Adenovirus F 40/41 PCR Not Detected (NotDetected); Astrovirus PCR Not Detected (NotDetected); Campylobacter PCR Not Detected (NotDetected); Cryptosporidium PCR Not Detected (NotDetected); Cyclospora cayetanensis PCR Not Detected (NotDetected); Entamoeba histolytica PCR Not Detected (NotDetected); Enteroaggregative E.coli(EAEC) Not Detected (NotDetected); Enteropathogenic E.coli (EPEC) Not Detected (NotDetected); Enterotoxigenic E.coli (ETEC) Not Detected (NotDetected); Giardia lamblia PCR Not Detected (NotDetected); Norovirus GI/GII PCR Not Detected (NotDetected); Plesiomonas shigelloides PCR Not Detected (NotDetected); Rotavirus A PCR Not Detected (NotDetected); Salmonella PCR Not Detected (NotDetected); Sapovirus PCR Not Detected (NotDetected); Shiga-like Toxin E.coli (STEC) Not Detected (NotDetected); Shigella/Enteroinvasive E.coli Not Detected (NotDetected); Vibrio cholerae PCR Not Detected (NotDetected); Vibrio species PCR Not Detected (NotDetected); Yersinia enterocolitica PCR Not Detected (NotDetected)
[2023-03-06] MEDS: METOPROLOL TARTRATE 25 MG TAB PO SCH (21:04)
[2023-03-07] MEDS: CIPROFLOXACIN / D5W 400 MG/200 ML BAG IV SCH ×2 (02:46→13:59)
[2023-03-07] MEDS: LEVOTHYROXINE SODIUM 75 MCG TABLET PO SCH (05:54)
[2023-03-07] MEDS: metroNIDAZOLE 500 MG/100 ML BAG IV SCH ×3 (05:54→20:16)
[2023-03-07 06:22] LABS: BUN Creatinine Ratio 10.2 (10-20); Calcium 8.3 mg/dl (8.6-10.3); Creatinine Clr Calc Pharmacy 56.4 ml/min; Est GFR (African American) 101.7 ml/min; Est GFR (Non-African American) 87.8 ml/min; Magnesium 1.7 mg/dl (1.7-2.4); Potassium 3.8 mmol/L (3.5-5.1)
[2023-03-07 06:23] LABS: Hematocrit (blood only) 32.2 % (37.0-47.0); Hemoglobin 10.6 g/dl (12.0-16.0); Mean Corpuscular Hemoglobin 32.5 pg (25.0-34.0); Mean Corpuscular Hgb Conc 32.9 g/dL (32.0-36.0); Mean Corpuscular Volume 98.8 fL (80.0-100.0); Mean Platelet Volume 11.4 fL (9.4-12.4); Platelet Count 91 K/uL (130-400); RDW Coefficient of Variation 12.8 % (11.5-14.5); RDW Standard Deviation 46.2 fL (36.4-46.3); Red Blood Count 3.26 M/uL (4.20-5.40); White Blood Count 6.07 K/ul (4.8-10.8)
[2023-03-07 06:43] LABS: Platelet Estimate Decreased (Normal)
[2023-03-07] MEDS: MULTIVITAMIN TAB PO SCH (08:49)
[2023-03-07] MEDS: carBAMazepine 200 MG TABLET PO SCH ×3 (08:50→20:18)
[2023-03-07] MEDS: CYANOCOBALAMIN (B-12) 100 MCG TABLET PO SCH (08:50)
[2023-03-07] MEDS: PANTOprazole 40 MG TAB PO SCH (08:50)
[2023-03-07] MEDS: ESCITALOPRAM OXALATE 10 MG TAB PO SCH (08:50)
[2023-03-07] MEDS: lisinopril 5 MG TAB PO SCH (08:50)
--- NOTE | 2023-03-07 08:54 | Gastroenterology Progress Note ---
Date of Service March 07, 2023 Assessment & Plan (1) Rectal bleeding: Plan 78 year old female admitted w/ suspected ischemic colitis, clinically improving w/ less abd pain and resolution of bloody diarrhea. May advance diet as tolerated OP colonoscopy Trend H/H, transfuse pRBC PRN Monitor and document GI output Bentyl 10 mg TID PRN while admitted. Will sign off. Recall as needed. Thank you for allowing us to participate in the care of this patient. Please call with any acute changes, questions or concerns. Please see addendum below with additional recommendation from my supervising physician. Admission and Anticipated Discharge Date Admission Date: March 05, 2023 Supervising Physician Co-Signing Physician Notes I performed a history and physical examination of the patient today, including specifically on physical exam - soft abdomen. I have discussed the patient's management with the advanced practitioner. Please refer to the nurse practitioner's note for the documented findings and plan of care. Subjective pt was seen and evaluated, chart reviewed. Abd pain is improving. Bowels also improving. Last episode of dark stool yesterday. Today BM without blood. Review of Systems Review of Systems: All systems reviewed & are unremarkable except as noted in HPI & below Physical Exam Constitutional: WD/WN, vitals as above Respiratory: normal respiratory effort, lungs clear to auscultation Cardiovascular: RRR, no murmur, no edema Gastrointestinal (Abdomen): normal bowel sounds, soft, nontender, no hepatosplenomegaly Skin: no rashes, warm and dry Results & Data Vital Signs (Past 12 Hours) Vital Signs Temp Pulse Pulse Resp BP Pulse Ox O2 Del Method 03/07/23 07:54 36.9 C 59 L 16 154/64 H 96 Room Air 03/07/23 07:21 63 03/07/23 04:24 36.8 C 68 18 163/74 H 95 Room Air 03/07/23 00:00 69 03/07/23 00:41 37.3 C 62 18 153/62 H 95 Room Air
[2023-03-07] MEDS: METOPROLOL TARTRATE 25 MG TAB PO SCH ×2 (08:56→20:19)
[2023-03-07] MEDS: ROSUVASTATIN CALCIUM 20 MG TAB PO SCH (11:14)
[2023-03-07] MEDS ORDERED: LOPERAMIDE HCL 2 MG CAP PO PRN (11:30)
[2023-03-07] MEDS: ADVANCED PROBIOTIC 1250 MG CAPSULE PO SCH (13:04)
--- NOTE | 2023-03-07 17:39 | Hospitalist Progress Note ---
Date of Service March 07, 2023 Assessment & Plan (1) Colitis: Plan: Hemorrhagic colitis --CT ABD:Colitis of the left colon, infectious or inflammatory. Large hiatal hernia, similar to prior. H/O hemorrhoids, diverticulosis, Gastric Ulcer Stool studies negative Monitor H&H and transfuse as needed Empirically started on Cipro, Flagyl Gentle IV fluids Appreciate GI input Continue PPI Hold Aspirin, avoid anticoagulation Advance diet as tolerated Outpatient colonoscopy per GI Mild troponin elevation Likely demand ischemia secondary to above Denies any chest pain, dyspnea No significant rise in troponin Chronic systolic heart failure H/O Nonischemic cardiomyopathy (EF 44%, TTE 2016) Chronic LBBB Clinically dehydrated on presentation Monitor volume status while on IV fluids Hypertension Continue metoprolol, lisinopril Monitor Hyperlipidemia On statin Prediabetes Last HbA1C 5.7 Hypothyroidism Continue levothyroxine Trigeminal Neuralgia S/P surgery Continue Tegretol DVT Px: SCDs Re: L GIB Code Status Full code Admission and Anticipated Discharge Date Admission Date: March 05, 2023 Subjective Patient is seen and examined at bedside States having more formed stool today Denies any abdominal pain Was nauseous earlier today Tolerating current diet Denies any nausea, vomiting, chest pain, dyspnea Review of Systems Review of Systems: All systems reviewed & are unremarkable except as noted in Subjective Physical Exam Physical Exam: Physical Exam: Vitals signs as noted above General Appearance:Elderly, no apparent distress Head: normocephalic, Atraumatic Eyes: normal inspection, EOMI Neck: supple, Trachea midline Respiratory/Chest: Normal breath sounds, CTA, No accessory muscle use Cardiovascular: S1, S2, No murmur Abdomen/GI:Soft, non tender, Bowel sounds present Extremities/Musculoskeletal:normal inspection, no edema Neurologic/Psych:AAOX3, grossly no focal neurological deficits Skin: normal color, warm Results & Data Results & Data Vital Signs (Past 12 Hours) Vital Signs Temp Pulse Pulse Resp BP Pulse Ox O2 Del Method 03/07/23 16:52 65 03/07/23 15:46 36.9 C 64 16 149/70 H 95 Room Air 03/07/23 11:20 36.7 C 58 L 16 155/66 H 94 Room Air 03/07/23 08:56 77 03/07/23 07:54 36.9 C 59 L 16 154/64 H 96 Room Air 03/07/23 07:21 63 Laboratory Results Short CBC 03/07/23 Range/Units 05:31 WBC 6.07 (4.8-10.8) K/ul Hgb 10.6 L (12.0-16.0) g/dl Hct 32.2 L (37.0-47.0) % Plt Count 91 L (130-400) K/uL BMP 03/07/23 05:31 Sodium 142 Potassium 3.8 Chloride 111 H Carbon Dioxide 27 BUN 6 Creatinine 0.59 L Glucose 98 Calcium 8.3 L
[2023-03-08] MEDS: CIPROFLOXACIN / D5W 400 MG/200 ML BAG IV SCH ×2 (01:37→13:28)
[2023-03-08] MEDS: metroNIDAZOLE 500 MG/100 ML BAG IV SCH ×2 (05:13→13:28)
[2023-03-08] MEDS: LEVOTHYROXINE SODIUM 75 MCG TABLET PO SCH (05:13)
[2023-03-08 06:39] LABS: Hematocrit (blood only) 35.7 % (37.0-47.0); Hemoglobin 11.8 g/dl (12.0-16.0); Mean Corpuscular Hemoglobin 32.1 pg (25.0-34.0); Mean Corpuscular Hgb Conc 33.1 g/dL (32.0-36.0); Mean Platelet Volume 11.4 fL (9.4-12.4); Platelet Count 110 K/uL (130-400); RDW Coefficient of Variation 12.5 % (11.5-14.5); RDW Standard Deviation 44.8 fL (36.4-46.3); Red Blood Count 3.68 M/uL (4.20-5.40); White Blood Count 6.16 K/ul (4.8-10.8)
[2023-03-08 06:40] LABS: BUN Creatinine Ratio 10.8 (10-20); Calcium 8.8 mg/dl (8.6-10.3); Est GFR (African American) 89.9 ml/min; Est GFR (Non-African American) 77.6 ml/min; Magnesium 1.7 mg/dl (1.7-2.4); Potassium 3.9 mmol/L (3.5-5.1)
[2023-03-08] MEDS: ADVANCED PROBIOTIC 1250 MG CAPSULE PO SCH (08:58)
[2023-03-08] MEDS: carBAMazepine 200 MG TABLET PO SCH ×2 (08:58→13:34)
[2023-03-08] MEDS: ESCITALOPRAM OXALATE 10 MG TAB PO SCH (08:58)
[2023-03-08] MEDS: PANTOprazole 40 MG TAB PO SCH (08:59)
[2023-03-08] MEDS: MULTIVITAMIN TAB PO SCH (08:59)
[2023-03-08] MEDS: METOPROLOL TARTRATE 25 MG TAB PO SCH (08:59)
[2023-03-08] MEDS: CYANOCOBALAMIN (B-12) 100 MCG TABLET PO SCH (08:59)
[2023-03-08] MEDS: lisinopril 5 MG TAB PO SCH (08:59)
[2023-03-08] MEDS: ROSUVASTATIN CALCIUM 20 MG TAB PO SCH (08:59)
--- NOTE | 2023-03-08 13:49 | Hospitalist Progress Note ---
Date of Service March 08, 2023 Assessment & Plan (1) Colitis: Plan: Hemorrhagic colitis --CT ABD:Colitis of the left colon, infectious or inflammatory. Large hiatal hernia, similar to prior. H/O hemorrhoids, diverticulosis, Gastric Ulcer Stool studies negative Monitor H&H and transfuse as needed Empirically started on Cipro, Flagyl Received gentle IV fluids Appreciate GI input Continue PPI Hb stable Resume Aspirin as able Outpatient colonoscopy per GI Tolerated regular diet Mild troponin elevation Likely demand ischemia secondary to above Denies any chest pain, dyspnea No significant rise in troponin Chronic systolic heart failure H/O Nonischemic cardiomyopathy (EF 44%, TTE 2016) Chronic LBBB Clinically dehydrated on presentation Monitor volume status while on IV fluids Hypertension Continue metoprolol, lisinopril Monitor Hyperlipidemia On statin Prediabetes Last HbA1C 5.7 Hypothyroidism Continue levothyroxine Trigeminal Neuralgia S/P surgery Continue Tegretol DVT Px: SCDs Re: L GIB Code Status Full code Disposition Home Admission and Anticipated Discharge Date Admission Date: March 05, 2023 Subjective Patient is seen and examined at bedside Diarrhea continues to improve, reports having more formed stools today Only has minimal abdominal discomfort Tolerating regular diet Had 1 bowel movement today Denies any nausea, vomiting, chest pain, dyspnea Plan to discharge home today Review of Systems Review of Systems: All systems reviewed & are unremarkable except as noted in Subjective Physical Exam Physical Exam: Physical Exam: Vitals signs as noted above General Appearance:Elderly, no apparent distress Head: normocephalic, Atraumatic Eyes: normal inspection, EOMI Neck: supple, Trachea midline Respiratory/Chest: Normal breath sounds, CTA, No accessory muscle use Cardiovascular: S1, S2, No murmur Abdomen/GI:Soft, non tender, Bowel sounds present Extremities/Musculoskeletal:normal inspection, no edema Neurologic/Psych:AAOX3, grossly no focal neurological deficits Skin: normal color, warm Results & Data Results & Data Vital Signs (Past 12 Hours) Vital Signs Temp Pulse Pulse Pulse Resp BP Pulse Ox 03/08/23 11:35 37.1 C 62 20 167/78 H 94 03/08/23 11:33 36.9 C 73 80 20 169/79 H 94 03/08/23 08:13 36.9 C 73 20 169/79 H 94 03/08/23 06:02 60 03/08/23 05:58 36.9 C 69 16 168/82 H 95 O2 Del Method 03/08/23 11:35 Room Air 03/08/23 11:33 03/08/23 08:13 Room Air 03/08/23 06:02 03/08/23 05:58 Room Air Laboratory Results Short CBC 03/08/23 Range/Units 05:48 WBC 6.16 (4.8-10.8) K/ul Hgb 11.8 L (12.0-16.0) g/dl Hct 35.7 L (37.0-47.0) % Plt Count 110 L (130-400) K/uL BMP 03/08/23 05:48 Sodium 141 Potassium 3.9 Chloride 106 Carbon Dioxide 30 BUN 8 Creatinine 0.74 Glucose 113 H Calcium 8.8
--- NOTE | 2023-03-08 13:57 | Discharge Summary ---
Date of Service March 08, 2023 Admission HPI Per Admitting Provider History obtained from patient and records. Medical history significant for chronic systolic heart failure secondary to nonischemic cardiomyopathy (EF 44%, TTE 2016), chronic LBBB, hypertension, hyperlipidemia, hypothyroidism, history gastric ulcer, history diverticulosis, prediabetes, trigeminal neuralgia status post surgery, anxiety/mood disorder. Last confinement over 2015 for headache attributed to trigeminal neuralgia. Patient noted watery diarrhea symptoms yesterday with crampy abdominal pain. Diarrhea later noted to be bloody. No fever, some chills. Some nausea, no emesis. No recent out-of-town travel, new restaurants, antibiotic Rx or known sick contacts. Patient denies headache, chest pain, SOB. Patient consulted ER for evaluation. 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 Admission Exam Per Admitting Provider GENERAL: Comfortable, pleasant, slightly hard of hearing, no respiratory distress SKIN: Normal color, warm HEENT: [place] palpebral conjunctivae, no ptosis, dry buccal mucosa NECK : Supple, no tenderness CHEST : CTA, no tenderness HEART : RRR, no obvious murmurs ABDOMEN: Some distention, left-sided abdominal tenderness EXTREMITIES : Minimal LE swelling, no LE tenderness, no other conspicuous deformities noted NEUROLOGIC : Coherent, no facial asymmetry, slightly hard of hearing, no other gross focality Principal Diagnosis Colitis Discharge Data Allergies Allergy/AdvReac Type Severity Reaction Status Date / Time pseudoephedrine Allergy Intermediate heart Verified 03/05/23 20:08 beats, funny feeling Consultations 03/05/23 22:30 ED Decision to Admit Stat 03/06/23 13:12 Consult Gastroenterology Routine Procedures Performed Laboratory Results WBC 6.16 K/ul (4.8-10.8) 03/08/23 05:48 RBC 3.68 M/uL (4.20-5.40) L 03/08/23 05:48 Hgb 11.8 g/dl (12.0-16.0) L 03/08/23 05:48 Hct 35.7 % (37.0-47.0) L 03/08/23 05:48 MCV 97.0 fL (80.0-100.0) 03/08/23 05:48 MCH 32.1 pg (25.0-34.0) 03/08/23 05:48 MCHC 33.1 g/dL (32.0-36.0) 03/08/23 05:48 RDW Std Deviation 44.8 fL (36.4-46.3) 03/08/23 05:48 RDW Coeff of Danyelle 12.5 % (11.5-14.5) 03/08/23 05:48 Plt Count 110 K/uL (130-400) L 03/08/23 05:48 MPV 11.4 fL (9.4-12.4) 03/08/23 05:48 Immature Gran % (Auto) 0.2 % 03/06/23 08:02 Neut % (Auto) 71.4 % 03/06/23 08:02 Lymph % (Auto) 15.2 % 03/06/23 08:02 [place] % (Auto) 12.1 % 03/06/23 08:02 Eos % (Auto) 0.8 % 03/06/23 08:02 Baso % (Auto) 0.3 % 03/06/23 08:02 Neut # (Auto) 8.27 K/uL (1.40-6.50) H 03/06/23 08:02 Lymph # (Auto) 1.76 K/uL (1.2-3.4) 03/06/23 08:02 [place] # (Auto) 1.40 K/uL (0.11-0.59) H 03/06/23 08:02 Eos # (Auto) 0.09 K/uL (0-0.50) 03/06/23 08:02 Baso # (Auto) 0.04 K/uL (0-0.2) 03/06/23 08:02 Immature Gran # (Auto) 0.02 K/uL (0.01-0.20) 03/06/23 08:02 Platelet Estimate Decreased (Normal) L 03/07/23 05:31 PT 10.7 Seconds (9.0-12.0) 03/05/23 19:47 INR 1.0 (0.9-1.1) 03/05/23 19:47 APTT 26.5 Seconds (21.0-31.0) 03/05/23 19:47 PTT Ratio 0.9 03/05/23 19:47 Sodium 141 mmol/L (136-145) 03/08/23 05:48 Potassium 3.9 mmol/L (3.5-5.1) 03/08/23 05:48 Chloride 106 mmol/L (98-107) 03/08/23 05:48 Carbon Dioxide 30 mmol/L (21-32) 03/08/23 05:48 Anion Gap 5 (3-11) 03/08/23 05:48 BUN 8 mg/dl (6-23) 03/08/23 05:48 Creatinine 0.74 mg/dl (0.6-1.2) 03/08/23 05:48 Est Cr Clr Drug Dosing 45.0 ml/min 03/08/23 05:48 Est GFR ( Amer) 89.9 ml/min 03/08/23 05:48 Est GFR (Non-Af Amer) 77.6 ml/min 03/08/23 05:48 BUN/Creatinine Ratio 10.8 (10-20) 03/08/23 05:48 Glucose 113 mg/dl (70-99(Fasting)) H 03/08/23 05:48 Lactate 0.6 mmol/L (0.4-2.0) 03/05/23 22:51 Calcium 8.8 mg/dl (8.6-10.3) 03/08/23 05:48 Magnesium 1.7 mg/dl (1.7-2.4) 03/08/23 05:48 Total Bilirubin 0.4 mg/dl (0.2-1.0) 03/05/23 19:47 AST 17 U/L (13-39) 03/05/23 19:47 ALT 10 U/L (7-52) 03/05/23 19:47 Alkaline Phosphatase 111 U/L (34-104) H 03/05/23 19:47 Troponin I High Sens 19.0 pg/ml (0-14) H 03/05/23 22:51 Total Protein 7.4 gm/dl (6.0-8.3) 03/05/23 19:47 Albumin 4.5 gm/dl (3.4-5.0) 03/05/23 19:47 Globulin 2.9 gm/dl (2.5-4.0) 03/05/23 19:47 Albumin/Globulin Ratio 1.6 (0.9-2) 03/05/23 19:47 Procalcitonin 0.11 ng/ml (0-0.5) 03/05/23 22:50 Stool Occult Bld Scrn Positive (Negative) A 03/06/23 20:16 Stl C. cayetanensis PCR Not Detected (NotDetected) 03/06/23 15:05 Stool Rotavirus A PCR Not Detected (NotDetected) 03/06/23 15:05 Stl Adenov F 40/41 PCR Not Detected (NotDetected) 03/06/23 15:05 Stool Astrovirus (PCR) Not Detected (NotDetected) 03/06/23 15:05 Stool Campylobacter PCR Not Detected (NotDetected) 03/06/23 15:05 Stl C. diff Tox B Gene Negative Cdiff Gene (Neg) 03/07/23 Unknown Stool Cryptosporidium PCR Not Detected (NotDetected) 03/06/23 15:05 Stl E.coli Shiga Tox PCR Not Detected (NotDetected) 03/06/23 15:05 Stl Enterotoxigenic E PCR Not Detected (NotDetected) 03/06/23 15:05 Stool EPEC (PCR) Not Detected (NotDetected) 03/06/23 15:05 Stool EAEC (PCR) Not Detected (NotDetected) 03/06/23 15:05 Stl E. histolytica PCR Not Detected (NotDetected) 03/06/23 15:05 Stool Giardia Lamblia PCR Not Detected (NotDetected) 03/06/23 15:05 Stool Salmonella PCR Not Detected (NotDetected) 03/06/23 15:05 Stool Sapovirus (PCR) Not Detected (NotDetected) 03/06/23 15:05 Stl P. shigelloides PCR Not Detected (NotDetected) 03/06/23 15:05 Stl Shigella/EIEC PCR Not Detected (NotDetected) 03/06/23 15:05 St Y.enterocolitica PCR Not Detected (NotDetected) 03/06/23 15:05 Stool Vibrio (PCR) Not Detected (NotDetected) 03/06/23 15:05 Stl Vibrio cholerae PCR Not Detected (NotDetected) 03/06/23 15:05 Stl Norovirus GI/GII PCR Not Detected (NotDetected) 03/06/23 15:05 Carbamazepine 9.0 mcg/ml (4-12) 03/05/23 22:51 SARS-CoV-2, RNA, NAAT NEGATIVE (NEGATIVE) 03/05/23 20:26 Blood Type O Positive 03/05/23 19:29 Antibody Screen NEGATIVE 03/05/23 19:29 Impressions Abdomen/Pelvis CT 03/05/23 20:15 Exam(s): CT ABDOMEN + PELVIS With Contrast IV Amt: 94 ml [id number] EXAM: CT Abdomen and Pelvis With Intravenous Contrast CLINICAL HISTORY: Reason for exam: rectal bleeding. TECHNIQUE: Axial computed tomography images of the abdomen and pelvis with intravenous contrast. CTDI is 19.4 mGy and DLP is 841.29 mGy-cm. Automated exposure control was utilized for the study. A dose lowering technique was utilized adhering to the principles of ALARA. CONTRAST: Patient received 94 ml [id number] of IV contrast COMPARISON: 07/21/21 FINDINGS: Lung bases: Unremarkable. No mass. No consolidation. Mediastinum: Large hiatal hernia. ABDOMEN: Liver: Unremarkable. No mass. Gallbladder and bile ducts: Unremarkable. No calcified stones. No ductal dilation. Pancreas: Unremarkable. No mass. No ductal dilation. Spleen: Unremarkable. No splenomegaly. Adrenals: Unremarkable. No mass. Kidneys and ureters: Symmetric renal enhancement. No hydronephrosis. Renal parapelvic cysts, simple in appearance; no further follow-up required. Stomach and bowel: Circumferential wall thickening and pericolic fat stranding of the left hemicolon. No bowel obstruction. PELVIS: Appendix: Normal appendix. Bladder: Unremarkable. Normal urinary bladder. Reproductive: Hysterectomy. ABDOMEN and PELVIS: Intraperitoneal space: Unremarkable. No free air or significant free fluid. Bones/joints: No acute fracture or dislocation. Soft tissues: Unremarkable. Vasculature: Atherosclerosis. No aortic aneurysm. Lymph nodes: Unremarkable. No enlarged lymph nodes. IMPRESSION: 1. Colitis of the left colon, infectious or inflammatory. 2. Large hiatal hernia, similar to prior. Electronically signed by: Felisa Manuel M.D. 03/05/23 22:20 PM Ordered Studies 03/05/23 20:15 CT abd pelvis IV con only Stat Hospital Course (1) Colitis: Hemorrhagic colitis --CT ABD:Colitis of the left colon, infectious or inflammatory. Large hiatal hernia, similar to prior. H/O hemorrhoids, diverticulosis, Gastric Ulcer Stool studies negative Monitor H&H and transfuse as needed Empirically started on Cipro, Flagyl Received gentle IV fluids Appreciate GI input Continue PPI Hb stable Resume Aspirin as able Outpatient colonoscopy per GI Tolerated regular diet Mild troponin elevation Likely demand ischemia secondary to above Denies any chest pain, dyspnea No significant rise in troponin Chronic systolic heart failure H/O Nonischemic cardiomyopathy (EF 44%, TTE 2016) Chronic LBBB Clinically dehydrated on presentation Monitor volume status while on IV fluids Hypertension Continue metoprolol, lisinopril Monitor Hyperlipidemia On statin Prediabetes Last HbA1C 5.7 Hypothyroidism Continue levothyroxine Trigeminal Neuralgia S/P surgery Continue Tegretol DVT Px: SCDs Re: L GIB Code Status Full code Disposition Home Total Time Total Time Spent Total Time Spent (In Minutes): 56 Discharge Plan Discharge Items Patient Disposition: Home - Self-Care Reason For Visit: COLITIS Discharge Diagnosis: Colitis Condition on Discharge: Fair Activity: Per Instructions section Exercise/Sports: Gradually increase as tolerated Non-emergency contact: Primary Care Provider and Senior Net Software Developer Call non-emergency contact if: you have any medication questions, your symptoms worsen, your pain is concerning for you and you have a fever Follow-up/Referrals: Stef Palmer MD [Primary Care Provider] - (Date & Time 03/13/2023 10:40 AM Provider Stef Palmer MD [facility] ) Diet: Heart Healthy Addtl Attending Provider Instructions: Follow-up with your primary care physician Dr. Palmer in 1 week Follow-up with your rotary kiln operator Dr. Cabrera for outpatient colonoscopy as advised --Complete the antibiotic course (Ciprofloxacin, Metronidazole) as prescribed. Do not take group of medications belonging to NSAIDs group -can cause worsening of your rectal bleed. List Of these medications includes but not limited to: Diclofenac Ibuprofen, Motrin, Advil Toradol,ketorolac Naproxen, Aleve, Naprosyn You can take Tylenol as needed for pain or fever When buying [id number] pain medications please consult with pharmacy if you are not sure regarding ingredients, as a lot of the pain medications have combination of NSAIDs and Tylenol. Seek immediate medical attention if your symptoms reoccur or worsen Please take all medications as instructed on discharge list below. Please call if you have any questions or problems. You can reach a [facility] hospitalist on duty at [facility] 24 hours a day by calling [phone] Pending Studies at Discharge: No Stand-Alone Forms: My [facility], Smoking Cessation Medications and DC Order Prescriptions: New Advanced Probiotic 625 mg (10 billion cell) Capsule 2 cap PO DAILY Qty: 30 0RF loperamide 2 mg Capsule 2 mg PO Q3H PRN (Reason: loose stool) Qty: 20 0RF ciprofloxacin HCl 500 mg tablet 500 mg PO BID Qty: 6 0RF metronidazole 500 mg tablet 500 mg PO Q8H Qty: 9 0RF Continued multivitamin Tablet 1 tab PO QAM Qty: 0 calcium carbonate 600 mg calcium (1,500 mg) Tablet 600 mg PO QAM PRN (Reason: Heartburn) Qty: 0 cranberry 400 mg Capsule 400 mg PO QAM Qty: 0 metoprolol tartrate 25 mg Tablet 0 mg PO BID Qty: 0 Rx Instructions: Pt unsure if she takes Succinate or Tartrate aspirin 81 mg Tablet,Delayed Release (Dr/Ec) 81 mg PO QAM Qty: 0 ferrous sulfate [iron] 325 mg (65 mg iron) Tablet 325 mg PO QAM Patient Comments: takes in the afternoon. Dyan Back and Body 500-32.5 mg Tablet 1 tab PO DIRECTED PRN (Reason: Pain) lisinopril 5 mg Tablet 5 mg PO QAM rosuvastatin 20 mg Tablet 20 mg PO QDL levothyroxine [Euthyrox] 75 mcg tablet 75 mcg PO QAM Rx Instructions: Levothyroxine 88mcg on EXT med list, however the pt states she takes 75mcg and the pill is not green, it's purple cyanocobalamin (vitamin B-12) [Vitamin B-12] 100 mcg Tablet 100 mcg PO QAM cholecalciferol (vitamin D3) [Vitamin D3] 25 mcg (1,000 unit) Tablet 25 mcg PO QAM carbamazepine 200 mg tablet 200 mg PO TID omeprazole 20 mg capsule,delayed release(DR/EC) 20 mg PO QAM escitalopram oxalate 10 mg tablet 10 mg PO QAM lorazepam 0.5 mg tablet 0.5 mg PO HS PRN (Reason: Anxiety) Discontinued naproxen 500 mg tablet 500 mg PO BID PRN (Reason: pain) Qty: 14 0RF Discharge Orders: Discharge Order (Routine); Ordered 03/08/23 Ordered By: Giorgio Dinero Admission Data Admit Date/Time: 03/05/23 23:46 Attending Provider: Giorgio Dinero Admit Provider: Tucker Osorio Primary Care Provider: Stef Palmer I. Other Providers: Tucker Osoiro ; Jonathan Meng ; Gerson Montenegro ; Devi Elliott ; Yolande Solomon ; Sara Tamez ; Karly Sibley ; Richard Lr ; Jonny Benitez ; Emory Carrillo ; Bala Sanchez ; Angelito Johnson ; Dipti Fonseca ; Sylvia Deras ; Citlali Peterson ; Karen Parikh ; Jacque Cabrera ; Bright Guevara ; Kai Penny ; Bella Frazier ; Taqueria Swann Jr Other Interventions: Discharge Summary Assessment (RN) Last Done: 03/08/23 11:33
== END 2023-03-08 14:27 | disposition home or self-care (01) | DRG 386 ==
LOC: ED 19:18 → SUATTDRO 03-06 → 2W 03-06